=== PATIENT | male | born 1985 | race Caucasian/White ===

== ENCOUNTER 2018-08-01 20:37 | Observation (INO) | payer BC, SELFPAY ==
[2018-08-01 20:38] VITALS: BP 151/71; PULSE 96; RESP 15; TEMP 36.6; O2SAT 97; BMI 21.7
[2018-08-01] MEDS: Morphine 4 MG/ML Syringe IV (21:45)
[2018-08-01] MEDS: Ondansetron 4 MG/2 ML Vial IV (21:45)
[2018-08-01 21:49] LABS: Absolute Neutrophil Count 4.1 X10^3/uL (2.0-7.7); Basophil# 0.05 X10^3/uL; Basophil% 0.6 % (0-1); Eosinophil# 0.89 X10^3/uL; Eosinophils% 10.2 % (0-5); Hematocrit 45.9 % (40-54); Hemoglobin 15.1 g/dl (13.0-16.5); Lymphocyte % 32.1 % (19-41); Mean Corp Hgb Conc 32.9 g/gl (32-36); Mean Corpuscular Volume 91.1 fL (80-94); Mean Platelet Vol. 10.6 fl (6.2-12.0); Monocyte# 0.92 X10^3/uL; Monocyte% 10.5 % (0-10); Neutrophil # 4.06 X10^3/uL (2.7-7.7); Neutrophil % 46.5 % (47-70); Platelet Count 211 K/mm3 (150-450); RBC Distribution Width SD 42.6 fl (35.1-43.9); Red Blood Count 5.04 M/mm3 (4.6-6.2); White Blood Count 8.7 K/mm3 (4.4-11.0)
[2018-08-01 21:50] LABS: POSITIVE COUNT NO; POSITIVE DIFFERENTIAL NO; POSITIVE MORPHOLOGY NO
--- NOTE | 2018-08-01 21:58 | RAD_ITS ---
STUDY: X-RAY - LUMBAR SPINE REASON FOR EXAM: Male, 33 years old. Acute back pain. TECHNIQUE: 3 view(s) of the lumbar spine were obtained. COMPARISON: None FINDINGS: There is straightening of the normal lumbar lordosis. There is no substantial scoliosis. There is a normal alignment of the vertebrae. Normal vertebral bodies and endplates. Normal disc space heights. There is no demonstrated fracture. The soft tissue structures are unremarkable. RAD/Lumbar Spine 2 or 3 Views IMPRESSION: Normal x-ray examination of the lumbar spine. Electronically Signed: Filipe Mckeon MD at 22:32 EST , Service support ,
[2018-08-01 22:15] LABS: Anion Gap 6 (5-15); BUN 17 mg/dL (7-18); BUN/Creat Ratio 15.2 RATIO (10-20); Chloride 107 mmol/L (98-107); Creatinine, Serum 1.12 mg/dL (0.70-1.30); EST Glomerular Filtration Rate 80 mL/min (>60); Est Glom Filt Rate - Afr Amer 97 mL/min (>60); Estimated Creatinine Clearance 93.68 ml/min; Glucose 99 mg/dL (74-106); Sodium Level 141 mmol/L (136-145)
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
[2018-08-02] VITALS (14 sets, daily range): BP systolic 106–123; BP diastolic 52–72; PULSE 54–76; RESP 16–18; TEMP 36.6–36.8; O2SAT 97–98; BMI 22.3
--- NOTE | 2018-08-02 00:05 | HP.PCM_ITS ---
Problem List (1) Radiculopathy Status: Acute (2) Urinary incontinence Status: Acute Qualifiers: Urinary Incontinence type: unspecified incontinence Qualified Code(s): R32 - Unspecified urinary incontinence (3) Weakness Status: Acute (4) Chewing tobacco use Status: Chronic History of Present Illness Date of Admission: 08/02/18 Chief Complaint: L sided paresthesias, weakness, pain, recent urinary incontinence The patient is a 33 y/o M w/ PMHx: Chew Tobacco use who presents to the [facility] ED on 08/02/18 with history of onset approximately 6 weeks prior initially left toes and left fingertip paresthesias which over the last several weeks have progressively worsened now inclusive of the left hand in addition to the left anterior thigh as well as knee downward circumferentially describing is the sensation of having been in the cold all day and suddenly then jumping in a warm bath with pins and needles, pain, double sensation in addition to subjective weakness, muscle loss to the left side as well as now onset over the last 24 hours with initially 1 or 2 occasions of urinary incontinence and on day of ED presentation ongoing urinary incontinence. Patient denies any stool incontinence. Work-up in the ED included T 97.8, heart rate 67, BP 121/72, respiratory rate 16, 97% on room air, CBC with WBC 8.7, hemoglobin 15.1, platelet 211 without any market left shift, BMP unremarkable, plain film of the lumbar spine unremarkable. No post void residuals were obtained in the ED thus incontinent type is unclear, possibly overflow with retention. In the ED, the patient administered Zofran, morphine. Upon patient presentation with requested admission discussed case with neurology who recommended admission to obtain MRI with contrast of the brain and cervical spine for further evaluation. Past Medical History Past Medical History (Chronic Problems): Chronic Problems Chewing tobacco use (Chronic) Allergies No Known Allergies Allergy (Verified 08/01/18 20:43) Home Medications: Ambulatory Orders Medication Instructions Recorded Cyclobenzaprine [Flexeril] 10 mg PO TID 08/02/18 Naproxen 500 mg PO BID 08/02/18 Surgical History: no surgical history Psychiatric History: No pertinent psych hx Lives: Spouse/ Significant Other - Patient was with his and 13-year-old son. Smoking Status: Never smoker Tobacco Use: Chew - Patient notes 1 can of to last approximately 1 week. Alcohol: None Drugs: None - *Family History Maternal History Items: Diabetes, Heart Disease Paternal History Items: Diabetes, Heart Disease Review of Systems Constitutional: Reports: Malaise, Weakness, Fatigue. Denies: Chills, Fever, Weight Change HEENT: Denies: Head Aches, Sinus Congestion, Sinus Drainage Cardiovascular: Denies: Chest Pain, Palpitations Respiratory: Denies: Cough, Shortness of breath at rest, Sputum production Gastrointestinal: Denies: Abdominal Pain, Nausea, Vomiting Genitourinary: Reports: Incontinence. Denies: Dysuria Musculoskeletal: Reports: Hand Pain, Leg Pain. Denies: Joint Pain, Joint Tenderness Skin: Denies: Rash, Wounds Neurological: Reports: Numbness, Tingling. Denies: Focal weakness Psychiatric: Denies: Anxiety, Depression, Homicidal Ideations, Suicidal Ideations Hematologic/ Lymphatic: Denies: Easy Bruising, Easy Bleeding VTE Information - Inpt Only VTE Present on Admission: No VTE Mechan Device Prophylaxis: SCD's VTE Pharm Prophylaxis ordered?: Yes Patient Problems: Active and Suspected Problems Radiculopathy (Acute) Urinary incontinence (Acute) Weakness (Acute) Subjective: Seated upright in the ED bed, no acute distress. Objective: Physical Examination: General: awake, alert, oriented x 3 and cooperative, seated upright in bed in no apparent distress. Skin: normal color, turgor, no icterus, cyanosis. HEENT: AT/NC, EOMI, PERRLA, MMM, no facial paresthesias present, no carotid bruits or JVD noted. Lungs: CTA bilaterally, moderate effort, mild decrease BL bases, no rales, ronchi or wheezing. Heart: Regular rate and rhythm; no gallop, rub audible. Abdomen: soft, NTTP, ND, normal BS, no HSM, rectal tone normal. Extremities: no cyanosis, clubbing, subjective decreased sensation to the anterior left thigh in addition to knee circumferentially downward in addition to left hand dorsal and palmar regions with patient noted subjective weakness however examination 5 out of 5 bilaterally, reflexes intact, negative Babinski, normal rectal tone; cognitive function intact; pupils equally reactive to light and accomodation; cranial nerves II-XII grossly normal, moving all 4 extremities, strength currently appears preserved with no focal deficits. Psychiatric: affect appears normal, no acute evidence of depressive or anxiety feelings. - Physical Exam Vital Signs Temp Pulse Resp BP Pulse Ox 97.9 F 96 15 151/71 H 97 08/01/18 20:38 08/01/18 20:38 08/01/18 20:38 08/01/18 20:38 08/01/18 20:38 Oxygen Delivery Method Room Air Weight: 155 lb 10.342 oz Body Mass Index (BMI) 21.7 Laboratory Tests Past 24 Hrs 08/01/18 08/01/18 21:40 21:40 WBC 8.7 RBC 5.04 Hgb 15.1 Hct 45.9 MCV 91.1 MCH 30.0 MCHC 32.9 RDW 13.0 RDW Differential 42.6 Plt Count 211 MPV 10.6 Immature Gran % (Auto) 0.100 Neut % (Auto) 46.5 L Lymph % (Auto) 32.1 [place] % (Auto) 10.5 H Eos % (Auto) 10.2 H Baso % (Auto) 0.6 Absolute Neuts (auto) 4.1 Absolute Lymphs (auto) 2.80 Total Counted Not Reportable Sodium 141 Potassium 4.0 Chloride 107 Carbon Dioxide 28.0 Anion Gap 6 BUN 17 Creatinine 1.12 Estim Creat Clear Calc 93.68 Est GFR (MDRD) Af Amer 97 Est GFR (MDRD) Non-Af 80 BUN/Creatinine Ratio 15.2 Glucose 99 Calcium 9.0 Assessment/Plan All Active Problems Radiculopathy (Acute) Urinary incontinence (Acute) Weakness (Acute) The patient is a 33 y/o M w/ PMHx: Chew Tobacco use who presents to the [facility] ED on 08/02/18 with history of onset approximately 6 weeks prior initially left toes and left fingertip paresthesias which over the last several weeks have progressively worsened now inclusive of the left hand in addition to the left anterior thigh as well as knee downward circumferentially in addition to subjective weakness, muscle loss to the left side as well as now onset over the last 24 hours urinary incontinence. (1) Left-sided paresthesias, Radiculopathy w/ Urinary Incontinence, Unclear type : Will admit to PCU, maintain on telemetry, continue serial neurological assessments, fall precautions, PRN pain and antiemetic regimen, obtain MRI Brain and cervical spine with contrast per discussion with Neurology, pending Neurology consultation/assessment, PT, OT, CM consultation. Post void residuals to assess for possible overflow incontinence which with retention would be more worrisome for cord compression. Neurology advised hold on any steroid addition until MRI resulted. (2) Tobacco Abuse: Encouraged cessation, inpatient consultation per RT, NR if desired. (3) DVT prophylaxis: SCDs, Lovenox. Code Visit OBSV E&M: 67802 Initial observation care L3
--- NOTE | 2018-08-02 01:00 | MRI_ITS ---
STUDY: MRI CERVICAL SPINE WITH AND WITHOUT CONTRAST REASON FOR EXAM: Male, 33 years old. Numbness and tingling in left hand. Left leg pain. Paresthesias. Urinary incontinence. TECHNIQUE: Standardized fat and water weighted pulse sequences were obtained in the sagittal and axial following I.V. administration of 7 ml of Gadavist contrast material. COMPARISON: None FINDINGS: Normal foramen magnum and brainstem-cervical cord junction. Normal craniovertebral junction. Normal anterior atlantoaxial articulation. Normal odontoid process. Normal cervical lordosis. Normal vertebral bodies and posterior osseous elements. C2-3: Normal endplates. Normal disc height, signal and morphology. Normal central canal and intervertebral neural foramina. C3-4: Normal endplates. Normal disc height, signal and morphology. Normal central canal and intervertebral neural foramina. C4-5: Normal endplates. Minimal disc space height narrowing. Mild central canal stenosis. Moderate stenosis of the bilateral intervertebral neural foramina due to osteophytes arising from the uncovertebral joints. C5-6: Normal endplates. Mild disc space height narrowing. Posterior annular bulging disc. Moderately pronounced central canal stenosis. The AP canal diameter is 3.5 mm. Moderately pronounced stenosis of the bilateral intervertebral neural foramina due to osteophytes arising from the uncovertebral joints. C6-7: Normal endplates. Normal disc height, signal and morphology. Normal central canal and intervertebral neural foramina. C7-T1: Normal endplates. Normal disc height, signal and morphology. Normal central canal and intervertebral neural foramina. T1-T2, T2-T3 and T3-T4: (Sagittal only). Normal endplates. Normal disc height, hydration and morphology. Normal central canal and bilateral intervertebral neural foramina. Abnormal T2 hyperintensity of the cervical spinal cord with surrounding tapering edema at the C5-C6 disc level. This enhanced with intravenous contrast. Normal visualized soft tissue structures. MRI/Spine Cervical W/WO Contrast IMPRESSION: 1. Moderate pronounced central canal stenosis at C5-C6 disc level and moderately pronounced stenosis of the bilateral intervertebral neural foramina due to osteophytes arising from the uncovertebral joints and posterior annular bulging disc. 2. Abnormal intramedullary signal abnormality of the cervical spinal cord at the C5-C6 disc level enhancement with intravenous contrast and with surrounding edema. Etiology is unknown at this time. Electronically Signed: Juan Cooney MD at 10:46 EST , Service support ,
--- NOTE | 2018-08-02 01:00 | MRI_ITS ---
STUDY: MRI BRAIN WITH AND WITHOUT CONTRAST REASON FOR EXAM: Male, 33 years old. Numbness and tingling in left hand. Left leg pain. Paresthesia. Urinary incontinence. TECHNIQUE: Standardized multiplanar fat and water weighted pulse sequences were obtained. 7 ml of Gadavist contrast material was administered intravenously for the contrast portion of the examination. COMPARISON: None. FINDINGS: No restricted diffusion to suspect acute or subacute ischemic infarct. No focal signal abnormalities throughout the brain parenchyma. Normal size of the ventricles and extra-axial spaces for the patient's age. Normal white matter tracts of the supratentorial brain. Normal bilateral basal ganglia. Normal thalami. There is no extra-axial fluid accumulation. Normal flow voids within the major intracranial circulation suggesting patency by spin echo criteria. Normal venous enhancement. There is no enhancing intra-axial or extra-axial abnormality. Normal sella turcica, pituitary gland, infundibular stalk, optic chiasm and hypothalamus. Normal tectal plate and pineal gland. Normal midbrain, js and medulla. Normal cerebellum. Normal basal cisterns. Normal bilateral temporal bones. Normal bilateral internal auditory canals. No demonstrated orbital abnormality, within the constraints of a routine brain study. Pronounced mucosal thickening of the entire paranasal sinuses. Normal calvarium and skull base. Normal visualized soft tissue structures. Normal visualized upper cervical spine. MRI/Brain W/WO Contrast IMPRESSION: 1. Normal unenhanced and enhanced MRI of the brain. 2. Pronounced pansinusitis. Electronically Signed: Juan Cooney MD at 10:06 EST , Service support ,
[2018-08-02 01:30] LABS: Magnesium 2.3 mg/dL (1.6-2.6); Thyroid Stim Hormone (TSH) 2.75 uIU/mL (0.358-3.74)
[2018-08-02] MEDS: 0.9% Normal Saline 1,000 ML 125 ML IV ×2 (01:34→12:08)
[2018-08-02 05:15] LABS: Absolute Lymphocyte Count 2.49 X10^3/ul (0.83-4.51); Absolute Neutrophil Count 2.3 X10^3/uL (2.0-7.7); Basophil# 0.04 X10^3/uL; Basophil% 0.6 % (0-1); Eosinophil# 0.86 X10^3/uL; Eosinophils% 13.2 % (0-5); Hemoglobin 13.5 g/dl (13.0-16.5); Lymphocyte # 2.49 X10^3/ul (4.0); Lymphocyte % 38.2 % (19-41); Mean Corp Hgb Conc 32.9 g/gl (32-36); Mean Corpuscular Hgb 30.1 pg (27.0-32.0); Mean Corpuscular Volume 91.5 fL (80-94); Mean Platelet Vol. 10.5 fl (6.2-12.0); Monocyte% 12.3 % (0-10); Neutrophil # 2.31 X10^3/uL (2.7-7.7); Neutrophil % 35.5 % (47-70); Platelet Count 171 K/mm3 (150-450); RBC Distribution Width CV 12.8 % (11.6-14.6); RBC Distribution Width SD 42.2 fl (35.1-43.9); Red Blood Count 4.48 M/mm3 (4.6-6.2); White Blood Count 6.5 K/mm3 (4.4-11.0)
[2018-08-02 05:16] LABS: POSITIVE COUNT NO; POSITIVE DIFFERENTIAL NO; POSITIVE MORPHOLOGY NO
[2018-08-02 05:29] LABS: Anion Gap 6 (5-15); BUN 19 mg/dL (7-18); BUN/Creat Ratio 17.6 RATIO (10-20); Calcium,Total 8.6 mg/dL (8.5-10.1); Chloride 106 mmol/L (98-107); Creatinine, Serum 1.08 mg/dL (0.70-1.30); EST Glomerular Filtration Rate 83 mL/min (>60); Est Glom Filt Rate - Afr Amer 101 mL/min (>60); Estimated Creatinine Clearance 98.52 ml/min; Glucose 87 mg/dL (74-106); Sodium Level 143 mmol/L (136-145)
[2018-08-02] MEDS: 0.9% NaCl Peripheral Flush Adult/Peds IV ×2 (05:46→22:32)
[2018-08-02 10:25] LABS: Erythrocyte Sedimentation Rate < 1 mm/hr (0-15)
[2018-08-02 10:31] LABS: CRP < 2.90 mg/L (0.0-3.0); Rheumatoid Factor < 10.0 IU/mL (<15)
[2018-08-02 10:43] LABS: Vitamin B12 929 pg/mL (211-911)
[2018-08-02] MEDS: HYDROcodone Bitartrate/Apap 5/325 Tablet PO ×2 (12:08→18:14)
--- NOTE | 2018-08-02 14:19 | CON.PCM_ITS ---
Problem List (1) Transverse myelitis Status: Acute Reason for Consult Date of Consultation: 08/02/18 Reason for Consultation: Left leg/arm numbness History of Present Illness: The patient is a 33 year old M with PMH chronic low back pain admitted with left leg numbness and weakness along with urinary incontinence. Per patient he has been having left leg numbness and left finger/hand numbness for the past 6-8 weeks, started having urinary incontinence for the past 2 days, has some weakness in the left leg, denies any falls, but complaints that he needs to catch himself, has severe low back pain, had intermittent radicular symptoms where he would feel electrical shock like sensation in the lower back. Denies any bladder incontinence, or saddle anesthesia. Denies any right sided numbness or weakness, denies facial weakness or numbness. No speech disturbance, visual disturbances. Denies any sick contact, tick bite or recent travel history. MRI C spine reported to show T2 hyperintense enhancing lesion at C5-C6 level. MRI Brain reported nothing acute. [] Past Medical History Past Medical History (Chronic Problems): Chronic Problems Chewing tobacco use (Chronic) Allergies No Known Allergies Allergy (Verified 08/01/18 20:43) Home Medications: Ambulatory Orders Medication Instructions Recorded Cyclobenzaprine [Flexeril] 10 mg PO TID 08/02/18 Naproxen 500 mg PO BID 08/02/18 Surgical History: no surgical history Psychiatric History: No pertinent psych hx Lives: Spouse/ Significant Other - Patient was with his and 13-year-old son. Smoking Status: Never smoker Tobacco Use: Chew - Patient notes 1 can of to last approximately 1 week. Alcohol: None Drugs: None - *Family History Maternal History Items: Diabetes, Heart Disease Paternal History Items: Diabetes, Heart Disease Review of Systems Constitutional: Reports: - - complete ROS negative except as documented in HPI Patient Problems: Active and Suspected Problems Radiculopathy (Acute) Urinary incontinence (Acute) Weakness (Acute) Transverse myelitis (Acute) - Physical Exam General: Alert HEENT: Normocephalic Neck: Supple Lungs: Normal air movement Cardiovascular: Normal S1, Normal S2 Abdomen: Bowel Sounds Present Extremities: No cyanosis Neurological: - - consious, alert, CN 2-12 grossly intact, Power 5/5 both UE, 5/5 right LE, +4/5 Left LE, mild sensory loss to light touch/pin prick in the left UE/LE, patient unable to identify clear sensory level, Reflexes +++ B/L B/S/T/K/A, illsustained ankle clonus left LE, no cerebellar signs, gait deferred, no NR. Psych/Mental Status: Normal Affect Vital Signs Temp Pulse Resp BP Pulse Ox 98.2 F 63 16 119/67 98 08/02/18 10:25 08/02/18 11:22 08/02/18 10:25 08/02/18 10:25 08/02/18 10:25 Oxygen Delivery Method Room Air Weight: 71.6 kg Body Mass Index (BMI) 22.3 Intake and Output for Last 24 Hours 07/31/18 08/01/18 08/02/18 23:59 23:59 23:59 Intake Total 1410 / 1410 Balance 1410 / 1410 Laboratory Tests Past 24 Hrs 08/01/18 08/01/18 08/01/18 21:40 21:40 21:40 WBC 8.7 RBC 5.04 Hgb 15.1 Hct 45.9 MCV 91.1 MCH 30.0 MCHC 32.9 RDW 13.0 RDW Differential 42.6 Plt Count 211 MPV 10.6 Immature Gran % (Auto) 0.100 Neut % (Auto) 46.5 L Lymph % (Auto) 32.1 [place] % (Auto) 10.5 H Eos % (Auto) 10.2 H Baso % (Auto) 0.6 Absolute Neuts (auto) 4.1 Absolute Lymphs (auto) 2.80 Total Counted Not Reportable ESR Sodium 141 Potassium 4.0 Chloride 107 Carbon Dioxide 28.0 Anion Gap 6 BUN 17 Creatinine 1.12 Estim Creat Clear Calc 93.68 Est GFR (MDRD) Af Amer 97 Est GFR (MDRD) Non-Af 80 BUN/Creatinine Ratio 15.2 Glucose 99 Calcium 9.0 Magnesium 2.3 C-React Prot Ext Range Angiotensin Convert Enz Vitamin B12 TSH 2.75 Rheumatoid Factor GOMEZ Screen c-ANCA Antibody p-ANCA Antibody SHERRI-1 Antibody SS-A/Ro IgG Antibody SS-B/La IgG Antibody Sm (Finch) Antibody [employer] SAL[employer]ESSIONAL Antibody Scl-70 Scleroderma Ab Double Strand DNA Ab Anti-ss DNA IgG Ab Centromere B Antibody Lyme Total Antibody West Nile Virus IgG Ab West Nile Virus IgM Ab Miscellaneous Test 08/02/18 08/02/18 08/02/18 05:00 05:00 05:00 WBC 6.5 RBC 4.48 L Hgb 13.5 Hct 41.0 MCV 91.5 MCH 30.1 MCHC 32.9 RDW 12.8 RDW Differential 42.2 Plt Count 171 MPV 10.5 Immature Gran % (Auto) 0.200 Neut % (Auto) 35.5 L Lymph % (Auto) 38.2 [place] % (Auto) 12.3 H Eos % (Auto) 13.2 H Baso % (Auto) 0.6 Absolute Neuts (auto) 2.3 Absolute Lymphs (auto) 2.49 Total Counted Not Reportable ESR < 1 Sodium 143 Potassium 4.0 Chloride 106 Carbon Dioxide 31.0 Anion Gap 6 BUN 19 H Creatinine 1.08 Estim Creat Clear Calc 98.52 Est GFR (MDRD) Af Amer 101 Est GFR (MDRD) Non-Af 83 BUN/Creatinine Ratio 17.6 Glucose 87 Calcium 8.6 Magnesium C-React Prot Ext Range Angiotensin Convert Enz Vitamin B12 TSH Rheumatoid Factor GOMEZ Screen c-ANCA Antibody p-ANCA Antibody SHERRI-1 Antibody SS-A/Ro IgG Antibody SS-B/La IgG Antibody Sm (Finch) Antibody [employer] SAL[employer] PROFESSIONAL Antibody Scl-70 Scleroderma Ab Double Strand DNA Ab Anti-ss DNA IgG Ab Centromere B Antibody Lyme Total Antibody West Nile Virus IgG Ab West Nile Virus IgM Ab Miscellaneous Test 08/02/18 08/02/18 08/02/18 05:00 05:00 05:00 WBC RBC Hgb Hct MCV MCH MCHC RDW RDW Differential Plt Count MPV Immature Gran % (Auto) Neut % (Auto) Lymph % (Auto) [place] % (Auto) Eos % (Auto) Baso % (Auto) Absolute Neuts (auto) Absolute Lymphs (auto) Total Counted ESR Sodium Potassium Chloride Carbon Dioxide Anion Gap BUN Creatinine Estim Creat Clear Calc Est GFR (MDRD) Af Amer Est GFR (MDRD) Non-Af BUN/Creatinine Ratio Glucose Calcium Magnesium C-React Prot Ext Range < 2.90 Angiotensin Convert Enz Vitamin B12 929 H TSH Rheumatoid Factor < 10.0 GOMEZ Screen Pending c-ANCA Antibody p-ANCA Antibody SHERRI-1 Antibody Pending SS-A/Ro IgG Antibody Pending SS-B/La IgG Antibody Pending Sm (Finch) Antibody Pending [employer]ESSIONAL Antibody Pending Scl-70 Scleroderma Ab Pending Double Strand DNA Ab Pending Anti-ss DNA IgG Ab Centromere B Antibody Pending Lyme Total Antibody West Nile Virus IgG Ab West Nile Virus IgM Ab Miscellaneous Test 08/02/18 08/02/18 05:00 05:00 WBC RBC Hgb Hct MCV MCH MCHC RDW RDW Differential Plt Count MPV Immature Gran % (Auto) Neut % (Auto) Lymph % (Auto) [place] % (Auto) Eos % (Auto) Baso % (Auto) Absolute Neuts (auto) Absolute Lymphs (auto) Total Counted ESR Sodium Potassium Chloride Carbon Dioxide Anion Gap BUN Creatinine Estim Creat Clear Calc Est GFR (MDRD) Af Amer Est GFR (MDRD) Non-Af BUN/Creatinine Ratio Glucose Calcium Magnesium C-React Prot Ext Range Angiotensin Convert Enz Pending Vitamin B12 TSH Rheumatoid Factor GOMEZ Screen c-ANCA Antibody Pending p-ANCA Antibody Pending SHERRI-1 Antibody SS-A/Ro IgG Antibody SS-B/La IgG Antibody Sm (Finch) Antibody [employer]ESSIONAL Antibody Scl-70 Scleroderma Ab Double Strand DNA Ab Anti-ss DNA IgG Ab Pending Centromere B Antibody Lyme Total Antibody Pending West Nile Virus IgG Ab Pending West Nile Virus IgM Ab Pending Miscellaneous Test Pending Assessment/Plan All Active Problems Radiculopathy (Acute) Urinary incontinence (Acute) Weakness (Acute) Transverse myelitis (Acute) The patient is a 33 year old M with PMH chronic low back pain admitted with left leg numbness and weakness along with urinary incontinence. Per patient he has been having left leg numbness and left finger/hand numbness for the past 6-8 weeks, started having urinary incontinence for the past 2 days, has some weakness in the left leg, denies any falls, but complaints that he needs to catch himself, has severe low back pain, had intermittent radicular symptoms where he would feel electrical shock like sensation in the lower back. Denies any bladder incontinence, or saddle anesthesia. Denies any right sided numbness or weakness, denies facial weakness or numbness. No speech disturbance, visual disturbances. Denies any sick contact, tick bite or recent travel history. MRI C spine reported to show T2 hyperintense enhancing lesion at C5-C6 level. MRI Brain reported nothing acute. Impression Enhancing hyperintense intramedullary lesion at C5-C6, spinal stenosis R/O inflammation/infectious/demyelinating etiology vs malignancy Plan -MRI C spine reported to show T2 hyperintense enhancing lesion at C5-C6 level. MRI Brain reported nothing acute. -Check MRI T spine w/w/o contrast and MRI L spine w/w/o contrast -LP- check CSF cell count, protein, glucose, MBP, oligoclonal bands, EISHA level, IGG index, EBV/HSV/CMV PCR, fungal and gram stain, -Check Vitamin B12 level, TSH, GOMEZ/ANCA/RF/SSa/SSb AB, NMO IgG and MOG Ab testing. -Solumedrol 1 g IV once daily for 5 days, then will switch to prednisone 60 mg PO once daily based on test results -Protonix and Calcium carbonate -GI/DVT prophylaxis -PT/OT -Fall precautions -Further medical management per hospitalist team -Please call with questions if any -Thank you for allowing us to participate in patient's care and management Code Visit Inpatient E&M: 74306 Init Hosp L3
--- NOTE | 2018-08-02 17:57 | PN_ITS ---
Patient Problems: Active and Suspected Problems Radiculopathy (Acute) Urinary incontinence (Acute) Weakness (Acute) Transverse myelitis (Acute) Subjective: Patient has ongoing numbness of left fingers for 6-8 weeks which was a stable until it progressed in the last 2 days with urinary incontinence of 1-2 occasion in addition of subjective weakness on the left leg. Numbness progressed to anterior aspect of thigh. Patient also had back pain. Vitals/I&O's: Vital Signs Temp Pulse Resp BP Pulse Ox 98.2 F 72 16 106/66 98 08/02/18 16:25 08/02/18 16:25 08/02/18 16:25 08/02/18 16:25 08/02/18 16:25 Oxygen Delivery Method Room Air Weight: 157 lb 13.616 oz Body Mass Index (BMI) 22.3 Intake and Output for Last 24 Hours 07/31/18 08/01/18 08/02/18 23:59 23:59 23:59 Intake Total 2561 / 2561 Balance 2561 / 2561 General: Alert, Oriented x3, Cooperative HEENT: Atraumatic, PERRLA, EOMI, Normocephalic Oral: Moist Mucosa Neck: Supple, No JVD, Negative Carotid Bruits Lungs: Clear to auscultation, Normal air movement, No rhonchi, No wheeze, No rales Cardiovascular: Regular rate, Regular Rhythm, Normal S1, Normal S2, No murmurs Abdomen: Bowel Sounds Present, Soft, Non Tender, Non-Distended Extremities: No edema, Capillary Refill Less than 3 Seconds Skin: No rashes, No breakdown Musculoskeletal: No Tenderness to Palpation of Joints or Extremities Neurological: - - Mild weakness of left lower extremity. 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 Plantar reflex is negative Psych/Mental Status: Normal Affect, Appropriate Laboratory Results 08/01/18 21:40: WBC 8.7, RBC 5.04, Hgb 15.1, Hct 45.9, MCV 91.1, MCH 30.0, MCHC 32.9, RDW 13.0, RDW Differential 42.6, Plt Count 211, MPV 10.6, Immature Gran % (Auto) 0.100, Neut % (Auto) 46.5 L, Lymph % (Auto) 32.1, [place] % (Auto) 10.5 H, Eos % (Auto) 10.2 H, Baso % (Auto) 0.6, Absolute Neuts (auto) 4.1, Absolute Lymphs (auto) 2.80, Total Counted Not Reportable 08/01/18 21:40: Sodium 141, Potassium 4.0, Chloride 107, Carbon Dioxide 28.0, Anion Gap 6, BUN 17, Creatinine 1.12, Estim Creat Clear Calc 93.68, Est GFR (M DRD) Af Amer 97, Est GFR (MDRD) Non-Af 80, BUN/Creatinine Ratio 15.2, Glucose 99, Calcium 9.0 08/01/18 21:40: Magnesium 2.3, TSH 2.75 08/02/18 05:00: WBC 6.5, RBC 4.48 L, Hgb 13.5, Hct 41.0, MCV 91.5, MCH 30.1, MCHC 32.9, RDW 12.8, RDW Differential 42.2, Plt Count 171, MPV 10.5, Immature Gran % (Auto) 0.200, Neut % (Auto) 35.5 L, Lymph % (Auto) 38.2, [place] % (Auto) 12.3 H, Eos % (Auto) 13.2 H, Baso % (Auto) 0.6, Absolute Neuts (auto) 2.3, Absolute Lymphs (auto) 2.49, Total Counted Not Reportable 08/02/18 05:00: Sodium 143, Potassium 4.0, Chloride 106, Carbon Dioxide 31.0, Anion Gap 6, BUN 19 H, Creatinine 1.08, Estim Creat Clear Calc 98.52, Est GFR (MDRD) Af Amer 101, Est GFR (MDRD) Non-Af 83, BUN/Creatinine Ratio 17.6, Glucose 87, Calcium 8.6 08/02/18 05:00: ESR < 1 08/02/18 05:00: C-React Prot Ext Range < 2.90, Rheumatoid Factor < 10.0 08/02/18 05:00: Vitamin B12 929 H 08/02/18 05:00: GOMEZ Screen Pending, SHERRI-1 Antibody Pending, SS-A/Ro IgG Antibody Pending, SS-B/La IgG Antibody Pending, Sm (Finch) Antibody Pending, FUEL TECHNICIAN Antibody Pending, Scl-70 Scleroderma Ab Pending, Double Strand DNA Ab Pending, Centromere B Antibody Pending 08/02/18 05:00: Angiotensin Convert Enz Pending, c-ANCA Antibody Pending, p-ANCA Antibody Pending, Anti-ss DNA IgG Ab Pending, Lyme Total Antibody Pending, West Nile Virus IgG Ab Pending, West Nile Virus IgM Ab Pending 08/02/18 05:00: Miscellaneous Test Pending Current Medications Acetaminophen (Tylenol) 650 mg PO Q6H PRN PRN PRN Reason: Non-cardiac pain (mod-severe) Hydrocodone Bitart/Acetaminophen ([place] 5mg-325mg) 1 - 2 tablet PO Q6H PRN PRN PRN Reason: Moderate-severe pain Last Admin: 08/02/18 12:08 Dose: 1 tablet Al Hydroxide/Mg Hydroxide (Mylanta Ii) 30 ml PO Q6H PRN PRN PRN Reason: Gastric burning Hydralazine HCl (Apresoline Iv) 10 mg IV Q4H PRN PRN PRN Reason: SBP > 160 Sodium Chloride () 1,000 mls @ 125 mls/hr IV .Q8H NELLIE Last Admin: 08/02/18 12:08 Dose: 125 mls/hr Methylprednisolone 1,000 mg/ (Sodium Chloride) 116 mls @ 116 mls/hr IV DAILY NELLIE Stop: 08/06/18 10:59 Last Admin: 08/02/18 17:26 Dose: 116 mls/hr Magnesium Hydroxide (Milk Of Magnesia) 30 ml PO DAILY PRN PRN Reason: Constipation Morphine Sulfate () 1 - 2 mg IV Q4H PRN PRN PRN Reason: PAIN Nutritional Formula (Lactose Free) (Ensure Enlive) 120 ml PO 4X/DAY NELLIE Last Admin: 08/02/18 17:26 Dose: 120 ml Ondansetron HCl (Zofran) 4 mg IV Q8H PRN PRN PRN Reason: NAUSEA Sodium Chloride () 5 - 15 ml IV UD PRN PRN Reason: SALINE FLUSH Last Admin: 08/02/18 05:46 Dose: 10 ml Medical Necessity - Tobacco Use Smoking Status: Never smoker Tobacco Use: Chew - Patient notes 1 can of to last approximately 1 week. Assessment/Plan All Active Problems Radiculopathy (Acute) Urinary incontinence (Acute) Weakness (Acute) Transverse myelitis (Acute) The patient is a 33 y/o M with no prior history of neurological problem but habit of chew Tobacco use who presents to the [facility] ED on 08/02/18 with history of onset approximately 6 weeks prior initially left toes and left fingertip paresthesias which over the last several weeks have progressively worsened now inclusive of the left hand in addition to the left anterior thigh as well as knee downward circumferentially in addition to subjective weakness, muscle loss to the left side as well as now onset over the last 24 hours urinary incontinence. (1) Left-sided paresthesias, Radiculopathy w/ Urinary Incontinence, Unclear type: Admitted to PCU, maintain on telemetry, continue serial neurological assessments, fall precautions, PRN pain and antiemetic regimen. MRI C-spine was done and shows T2 hyperintense enhancing lesion at C5-C6. Discussed with neurologist Dr. Lainez and no acute cord compression but has mild to moderate central canal stenosis at C5-C6 level and impingement on intervertebral foramen. Advised LP as there is high suspicion of transverse myelitis, rule out vasculitis. MRI T-spine and LS-spine also ordered. Solu-Medrol 1 g IV once daily for 5 days. Rheumatological small vessel disease workup. Need outpatient spine surgeon. obtain MRI Brain and cervical spine with contrast per discussion with Neurology, pending Neurology consultation/assessment, PT, OT, CM consultation. Post void residuals to assess for possible overflow incontinence which with retention would be more worrisome for cord compression. Neurology advised hold on any steroid addition until MRI resulted. (2) Tobacco Abuse: Encouraged cessation, inpatient consultation per RT, NR if desired. (3) DVT prophylaxis: SCDs, Lovenox. Clinical Impression(s) from Imaging Studies Lumbar Spine X-Ray 08/01/18 21:58 IMPRESSION: Normal x-ray examination of the lumbar spine. Electronically Signed: Filipe Mckeon MD at 22:32 EST , Service support , Brain MRI 08/02/18 01:00 IMPRESSION: 1. Normal unenhanced and enhanced MRI of the brain. 2. Pronounced pansinusitis. Cervical Spine MRI 08/02/18 01:00 IMPRESSION: 1. Moderate pronounced central canal stenosis at C5-C6 disc level and moderately pronounced stenosis of the bilateral intervertebral neural foramina due to osteophytes arising from the uncovertebral joints and posterior annular bulging disc. 2. Abnormal intramedullary signal abnormality of the cervical spinal cord at the C5-C6 disc level enhancement with intravenous contrast and with surrounding edema. Etiology is unknown at this time. Code Visit Inpatient E&M: 94511 Subs Hosp L2
[2018-08-02] MEDS: 0.9% Normal Saline 1,000 ML 100 ML IV (21:36)
[2018-08-02] MEDS: Morphine 2 MG/ML Syringe IV (22:32)
[2018-08-02] MEDS: Temazepam 15 MG Capsule PO (22:32)
[2018-08-03] VITALS (7 sets, daily range): BP systolic 94–135; BP diastolic 56–71; PULSE 69–93; RESP 16; TEMP 36.6–36.8; O2SAT 96–98
[2018-08-03 05:36] LABS: Oligoclonal Banding REF LAB
--- NOTE | 2018-08-03 06:00 | MRI_ITS ---
STUDY: MRI THORACIC SPINE WITH AND WITHOUT CONTRAST REASON FOR EXAM: Male, 33 years old. Transverse myelitis. Paresthesias. Numbness/tingling in left leg/hand. Urinary incontinence. Back pain. TECHNIQUE: 7 ml of Gadavist was administered intravenously for the contrast portion of the examination. COMPARISON: None. FINDINGS: Normal kyphosis of the thoracic spine. There is no substantial scoliosis. T1-2, T2-3, T3-4, T4-5, T5-6, T6-7, T7-8, T8-9, T9-10, T10-11, T11-12: Small posterior midline disc protrusion at T7-T8 disc level with mild disc space height narrowing. No recent or remote fractures of the thoracic spine. Minimal disc space height narrowing at T5-6 disc level. The remaining thoracic discs are normal. Small T5 benign vertebral body hemangioma. Normal central canal. Normal bilateral intervertebral neural foramina. Normal visualized thoracic cord. Normal conus medullaris that terminates at the upper T12 vertebral body level. The soft tissue structures are unremarkable. There is no enhancing abnormality. MRI/Spine Thoracic W/WO Contrast IMPRESSION: 1. Small T7-T8 posterior midline disc protrusion causing minimal indentation of the ventral cord surface but no spinal cord compression. 2. Minimal T5-T6 disc space height narrowing. 3. Small enhancing T5 benign vertebral body hemangioma. 4. Normal MRI of the thoracic spinal cord. Electronically Signed: Juan Cooney MD at 11:29 EST , Service support ,
--- NOTE | 2018-08-03 06:00 | MRI_ITS ---
STUDY: MRI LUMBAR SPINE WITH AND WITHOUT CONTRAST REASON FOR EXAM: Male, 33 years old. Back pain. Transverse myelitis. Paresthesias. Numbness/tingling of left leg/hand. Urinary incontinence. TECHNIQUE: Standardized fat and water weighted pulse sequences were obtained in the sagittal and axial planes. 7 ml of Gadavist contrast material was administered for the contrast portion of the examination. COMPARISON: None FINDINGS: T11-T12: (Sagittal only). Normal endplates. Normal disc height, hydration and morphology. No ventral extradural defect. Normal central canal and bilateral intervertebral neural foramina. T12-L1: (Sagittal only). Normal endplates with Schmorl's nodes. Normal disc height, hydration and morphology. No ventral extradural defect. Normal central canal and bilateral intervertebral neural foramina. Normal lumbar lordosis. There is no substantial scoliosis. Normal conus medullaris that terminates at the upper T12 vertebral body level. L1-2: Normal endplates. Normal disc height, hydration and morphology. Mild central canal stenosis with an AP canal diameter of 9 mm. This is secondary to developmentally short pedicles. Normal bilateral lateral recesses. Normal facet joints. Normal bilateral intervertebral neural foramina. L2-3: Normal endplates. Normal disc height, hydration and morphology. No ventral extradural defect. Mild central canal stenosis with an AP canal diameter of 8 mm. This is secondary to developmentally short pedicles. Normal bilateral lateral recesses. Normal facet joints. Normal bilateral intervertebral neural foramina. L3-4: Normal endplates. Normal disc height, hydration and morphology. Moderate central canal stenosis with an AP canal diameter of 7.5 mm. This is secondary to developmentally short pedicles. Normal bilateral lateral recesses. Normal facet joints. Normal bilateral intervertebral neural foramina. L4-5: Normal endplates. Mild disc space height narrowing. Small posterior midline disc protrusion. Moderately pronounced central canal stenosis. The AP canal diameter is 5 mm. Normal bilateral lateral recesses. Normal facet joints. Normal bilateral intervertebral neural foramina. L5-S1: Normal endplates. Mild disc space height narrowing. Small left posterior paramedian disc protrusion with suspicious minimal posterior displacement of the left S1 nerve root sleeve. Moderate central canal stenosis. The AP canal diameter is 6 mm. Normal facet joints. Normal bilateral intervertebral neural foramina. Normal visualized sacral ala. Normal visualized paraspinous soft tissue structures. No abnormally enhancing lesions intradurally and extradurally. MRI/Spine Lumbar W/WO Contrast IMPRESSION: 1. Moderately pronounced central canal stenosis at L4-L5 disc level secondary to developmental short pedicles and small posterior midline disc protrusion. 2. Small left L5-S1 posterior paramedian disc protrusion with suspicious minimal posterior displacement of the left S1 nerve root sleeve and moderate central canal stenosis. 3. Moderate central canal stenosis at L3-L4 disc level. 4. Mild central canal stenosis at L1-L2 and L2-L3 disc space levels. 5. No MRI evidence of lumbar extruded disc fragment. Electronically Signed: Juan Cooney MD at 11:24 EST , Service support ,
[2018-08-03 06:03] LABS: Anion Gap 8 (5-15); BUN 17 mg/dL (7-18); Calcium,Total 8.6 mg/dL (8.5-10.1); Chloride 108 mmol/L (98-107); EST Glomerular Filtration Rate 91 mL/min (>60); Est Glom Filt Rate - Afr Amer 110 mL/min (>60); Estimated Creatinine Clearance 106.41 ml/min; Glucose 176 mg/dL (74-106); Potassium 4.4 mmol/L (3.5-5.1); Sodium Level 142 mmol/L (136-145)
[2018-08-03] MEDS: 0.9% Normal Saline 1,000 ML 100 ML IV (06:12)
[2018-08-03 06:16] LABS: Absolute Lymphocyte Count 0.56 X10^3/ul (0.83-4.51); Absolute Neutrophil Count 5.6 X10^3/uL (2.0-7.7); Hematocrit 43.3 % (40-54); Lymphocyte # 0.56 X10^3/ul (4.0); Mean Corp Hgb Conc 32.3 g/gl (32-36); Mean Corpuscular Hgb 29.5 pg (27.0-32.0); Mean Corpuscular Volume 91.4 fL (80-94); Mean Platelet Vol. 10.9 fl (6.2-12.0); Monocyte# 0.03 X10^3/uL; Monocyte% 0.5 % (0-10); Neutrophil # 5.59 X10^3/uL (2.7-7.7); Neutrophil % 90.3 % (47-70); Platelet Count 180 K/mm3 (150-450); RBC Distribution Width CV 12.6 % (11.6-14.6); RBC Distribution Width SD 41.5 fl (35.1-43.9); Red Blood Count 4.74 M/mm3 (4.6-6.2); White Blood Count 6.2 K/mm3 (4.4-11.0)
[2018-08-03 06:19] LABS: Differential Indicated SCAN CRITERIA MET; POSITIVE COUNT NO; POSITIVE DIFFERENTIAL YES; POSITIVE MORPHOLOGY NO
--- NOTE | 2018-08-03 10:05 | RAD_ITS ---
PROCEDURE: Fluoroscopic guided Lumbar Puncture. DATE: August 04, 2018. CLINICAL INDICATION: Transverse myelitis. PHYSICIAN: Higinio Morgan M.D. MEDICATIONS: 1% lidocaine administered subcutaneously for local anesthesia. ACCESS SITE: Lower posterior back. NEEDLE: 22-gauge spinal needle. SPECIMEN: Approximately 12 mL clear]CSF fluid. FLUOROSCOPY TIME (if supplied): (0:23) minutes/seconds COMPLICATIONS: None immediate. The risks, benefits, and alternatives to the procedure were explained to the patient. The specific risks of bleeding, infection, and neurovascular injury were detailed and accepted. Witnessed informed consent was obtained. The patient was placed on the fluoroscopic table in the prone position. The level for needle entry was determined and marked. The overlying skin was cleaned and prepped in the usual sterile fashion. 2% lidocaine was administered subcutaneously for local anesthesia. Under fluoroscopic guidance a 22-gauge spinal needle was advanced. The thecal sac was entered at the L3- L4 vertebral level. The inner stylet was removed. There was spontaneous flow of clear CSF fluid. The patient was placed in a reversed Trendelenburg position. Approximately 12 mL of cerebrospinal fluid was collected using gravity. The specimen was collected and submitted to the laboratory for further evaluation. The needle was withdrawn,. Hemostasis was achieved and a sterile dressing placed. The patient tolerated the procedure well without any immediate complications. The patient was placed supine with head elevated and returned to the floor in stable condition. RAD/Fluoro Guided Lumbar Puncture IMPRESSION: Successful fluoroscopic-guided lumbar puncture. Electronically Signed: Higinio Morgan MD at 11:18 EST Tel [phone], Service support ,
--- NOTE | 2018-08-03 10:36 | CYSPIN_PTH ---
PATIENT: ALVARO HELM Jr. LOC: [facility] U#:[id number] AGE/SX: 33/M ROOM: [facility] RE08/02/[address]: Dr. Horacio Baeza MD : 1985 BED: 1 DIS: 08/03/2018 SPEC #: [id number] RECD: 08/03/18 12:02 STATUS: FEMI REQ #: [id number] JONATAN: 08/03/18 10:[address]: Horacio Baeza DEPT: CYTOLOGY RECD BY: Lon Harris ENTERED: 08/03/18 12:02 SP TYPE: CYSPIN FL OTHR DR: MD Dr. Amber Pérez MD No Primary Care Phys Tissues: Cerebrospinal Fluid Procedures: Pap Stain (control) Special Stain Group II Cytospin Fluid HEADER OPERATION: Lumbar puncture PRE-OP DIAGNOSIS: Transverse myelitis TISSUE SUBMITTED: Cerebrospinal fluid for cytology DIAGNOSIS CYTOLOGY Cerebrospinal fluid for cytology (cytospin): Negative for malignant cells. AM:bridgett 08/04/18 CYTOLOGY STUDY Slides are reviewed. CYTOLOGY GROSS Received is 3 ml of clear colorless fluid labeled with the patient's name and and designated per the requisition as CSF. Submitted for cytology preparation. / 08/03/18 TC:5 CPT: 86007
[2018-08-03 10:48] LABS: Cytology, Body Fluid / CSF SEE PATHOLOGY REPORT
--- NOTE | 2018-08-03 10:58 | NURSING ---
Vital signs obtained at this time, late per VSA due to patient being off floor at procedure
[2018-08-03] MEDS: HYDROcodone Bitartrate/Apap 5/325 Tablet PO ×2 (10:59→17:02)
[2018-08-03 11:13] LABS: Body Fluid Mononuclear WBC # 0.004 10^3/uL; Body Fluid Mononuclear WBC % 57.1 %; Body Fluid Polynuclear WBC # 0.003 10^3/uL; Body Fluid Polynuclear WBC % 42.9 %; Total Cell Count CSF 0.007 10^3/uL (0.000-0.000); White Count, CSF 0.007 10^3/uL (0.000-0.000)
[2018-08-03 11:14] LABS: Auto B Fluid Analyzer BKGD Ct COUNTS W/IN LIMITS (W/IN LIMITS); CSF Color COLORLESS (Colorless); Tested Tube # 4
[2018-08-03 11:15] LABS: Appearance CSF (character) CLEAR (Clear)
--- NOTE | 2018-08-03 11:35 | CASEMGMT ---
According to [place] website, the following are in-network tertiary facilities: [facility], [facility], [facility], [facility], [facility], [facility], [place], [facility], and . Willy PURVIS CM
[2018-08-03 11:41] LABS: Glucose Spinal Fluid 86 mg/dL (40-75)
[2018-08-03 12:06] LABS: Body Fluid QC Type(s) BF1Q; RBC Count, Spinal Fluid 0 /mm-3 (None seen)
--- NOTE | 2018-08-03 13:15 | PN.NEURO_ITS ---
Patient Problems: Active and Suspected Problems Radiculopathy (Acute) Urinary incontinence (Acute) Weakness (Acute) Transverse myelitis (Acute) Subjective: No Issues overnight. LP done- results pending. - Physical Exam General: Alert HEENT: Normocephalic Neck: Supple Lungs: Normal air movement Cardiovascular: Normal S1, Normal S2 Abdomen: Bowel Sounds Present Extremities: No cyanosis Neurological: - - consious, alert, CN 2-12 grossly intact, Power 5/5 both UE, 5/5 right LE, +4/5 Left LE, mild sensory loss to light touch/pin prick in the left UE/LE, patient unable to identify clear sensory level, Reflexes +++ B/L B/S/T/K/A, illsustained ankle clonus left LE, no cerebellar signs, gait deferred, no NR. Psych/Mental Status: Normal Affect Vital Signs Temp Pulse Resp BP Pulse Ox 98.2 F 80 16 116/65 98 08/03/18 10:51 08/03/18 11:02 08/03/18 10:51 08/03/18 10:51 08/03/18 10:51 Oxygen Delivery Method Room Air Weight: 71.6 kg Body Mass Index (BMI) 22.3 Intake and Output for Last 24 Hours 08/01/18 08/02/18 08/03/18 23:59 23:59 23:59 Intake Total 2561 / 2561 2345 / 2345 Balance 2561 / 2561 2345 / 2345 Microbiology Past 72 Hours 08/03/18 10:34 Gram Stain - Final Csf, Spinal Fluid Laboratory Tests Past 24 Hrs 08/02/18 08/03/18 08/03/18 10:34 05:00 05:00 WBC 6.2 RBC 4.74 Hgb 14.0 Hct 43.3 MCV 91.4 MCH 29.5 MCHC 32.3 RDW 12.6 RDW Differential 41.5 Plt Count 180 MPV 10.9 Immature Gran % (Auto) 0.200 Neut % (Auto) 90.3 H Lymph % (Auto) 9.0 L [place] % (Auto) 0.5 Eos % (Auto) 0.0 Baso % (Auto) 0.0 Absolute Neuts (auto) 5.6 Absolute Lymphs (auto) 0.56 L Total Counted Not Reportable Sodium Potassium Chloride Carbon Dioxide Anion Gap BUN Creatinine Estim Creat Clear Calc Est GFR (MDRD) Af Amer Est GFR (MDRD) Non-Af BUN/Creatinine Ratio Glucose Calcium Albumin Pending Fld Polynuclear WBCs # Fld Polynuclear WBCs % Fluid Mononuclear WBCs Fld Mononuclear WBCs % CSF Appearance CSF Color CSF WBC CSF RBC CSF Cell Count Tube # CSF Total Cell Counted CSF Comment CSF Glucose CSF Total Protein CSF Albumin Pending Serum IgG Pending CSF IgG/Albumin Pending CSF Albumin Index Pending CSF IgG Index Pending CSF IgG Local Synthesis Pending CSF Myelin Basic Protein Pending CSF/Ser Oligoclon Bands Pending CSF Cryptococcus Ag CMV DNA Qual PCR HSV I DNA PCR HSV II DNA PCR Culture Method Pending Miscellaneous Cytology Miscellaneous Test Pending 08/03/18 08/03/18 08/03/18 05:00 10:34 10:34 WBC RBC Hgb Hct MCV MCH MCHC RDW RDW Differential Plt Count MPV Immature Gran % (Auto) Neut % (Auto) Lymph % (Auto) [place] % (Auto) Eos % (Auto) Baso % (Auto) Absolute Neuts (auto) Absolute Lymphs (auto) Total Counted Sodium 142 Potassium 4.4 Chloride 108 H Carbon Dioxide 26.0 Anion Gap 8 BUN 17 Creatinine 1.00 Estim Creat Clear Calc 106.41 Est GFR (MDRD) Af Amer 110 Est GFR (MDRD) Non-Af 91 BUN/Creatinine Ratio 17.0 Glucose 176 H Calcium 8.6 Albumin Fld Polynuclear WBCs # Fld Polynuclear WBCs % Fluid Mononuclear WBCs Fld Mononuclear WBCs % CSF Appearance CSF Color CSF WBC CSF RBC CSF Cell Count Tube # CSF Total Cell Counted CSF Comment CSF Glucose 86 H CSF Total Protein 45.0 CSF Albumin Serum IgG CSF IgG/Albumin CSF Albumin Index CSF IgG Index CSF IgG Local Synthesis CSF Myelin Basic Protein Pending CSF/Ser Oligoclon Bands CSF Cryptococcus Ag Pending CMV DNA Qual PCR HSV I DNA PCR HSV II DNA PCR Culture Method Miscellaneous Cytology Miscellaneous Test 08/03/18 08/03/18 08/03/18 10:34 10:34 10:34 WBC RBC Hgb Hct MCV MCH MCHC RDW RDW Differential Plt Count MPV Immature Gran % (Auto) Neut % (Auto) Lymph % (Auto) [place] % (Auto) Eos % (Auto) Baso % (Auto) Absolute Neuts (auto) Absolute Lymphs (auto) Total Counted Sodium Potassium Chloride Carbon Dioxide Anion Gap BUN Creatinine Estim Creat Clear Calc Est GFR (MDRD) Af Amer Est GFR (MDRD) Non-Af BUN/Creatinine Ratio Glucose Calcium Albumin Fld Polynuclear WBCs # 0.003 Fld Polynuclear WBCs % 42.9 Fluid Mononuclear WBCs 0.004 Fld Mononuclear WBCs % 57.1 CSF Appearance CLEAR CSF Color COLORLESS CSF WBC 0.007 H CSF RBC 0 CSF Cell Count Tube # 4 CSF Total Cell Counted 0.007 H CSF Comment May follow CSF Glucose CSF Total Protein CSF Albumin Serum IgG CSF IgG/Albumin CSF Albumin Index CSF IgG Index CSF IgG Local Synthesis CSF Myelin Basic Protein CSF/Ser Oligoclon Bands CSF Cryptococcus Ag CMV DNA Qual PCR Pending HSV I DNA PCR Pending HSV II DNA PCR Pending Culture Method Miscellaneous Cytology Pending Miscellaneous Test Medical Necessity - Tobacco Use Smoking Status: Never smoker Tobacco Use: Chew - Patient notes 1 can of to last approximately 1 week. Assessment/Plan All Active Problems Radiculopathy (Acute) Urinary incontinence (Acute) Weakness (Acute) Transverse myelitis (Acute) The patient is a 33 year old M with H chronic low back pain admitted with left leg numbness and weakness along with urinary incontinence. Per patient he has been having left leg numbness and left finger/hand numbness for the past 6-8 weeks, started having urinary incontinence for the past 2 days, has some weakness in the left leg, denies any falls, but complaints that he needs to catch himself, has severe low back pain, had intermittent radicular symptoms where he would feel electrical shock like sensation in the lower back. Denies any bladder incontinence, or saddle anesthesia. Denies any right sided numbness or weakness, denies facial weakness or numbness. No speech disturbance, visual disturbances. Denies any sick contact, tick bite or recent travel history. MRI C spine reported to show T2 hyperintense enhancing lesion at C5-C6 level. MRI Brain reported nothing acute. Impression Enhancing hyperintense intramedullary lesion at C5-C6, spinal stenosis R/O inflammation/infectious/demyelinating etiology vs malignancy Plan -MRI C spine reported to show T2 hyperintense enhancing lesion at C5-C6 level. MRI Brain reported nothing acute. -MRI T spine w/w/o contrast- nothing acute and MRI L spine w/w/o contrast- reviewed -LP- CSF cell count-7, protein-45, glucose-86, rest CSF results pending-MBP, oligoclonal bands, IESHA level, IGG index, EBV/HSV/CMV PCR, fungal and gram stain, -ESR <1, CRP <2.9, Vitamin B12 level-929, TSH-2.75, RF <10. Await- GOMEZ/ANCA/SSa/SSb AB, NMO IgG and MOG Ab testing. -Solumedrol 1 g IV once daily for 5 days -Given above LP results with normal ESR/CRP- may need transfer to tertiary care for further evaluation to r/o malignant etiology. -Spine surgery/neurosurgery consult -May need to check follow up MRI C spine w/w/o contrast in 4 weeks -Protonix and Calcium carbonate -GI/DVT prophylaxis -PT/OT -Fall precautions -Further medical management per hospitalist team -Please call with questions if any -Thank you for allowing us to participate in patient's care and management
--- NOTE | 2018-08-03 17:00 | NURSING ---
Called report to Rahel PURVIS at [facility]
--- NOTE | 2018-08-03 17:30 | PCM.DC.SUM ---
Discharge Date and Diagnosis - Problem List Patient Problems: Active and Suspected Problems Radiculopathy (Acute) Urinary incontinence (Acute) Weakness (Acute) Transverse myelitis (Acute) Date of Admission: 08/02/18 Date of Discharge: 08/03/18 - Primary Discharge Diagnosis Active and Suspected Problems Radiculopathy (Acute) Urinary incontinence (Acute) Weakness (Acute) Transverse myelitis (Acute) - Secondary Discharge Diagnosis Chronic Problems Chewing tobacco use (Chronic) Hospital Course and Treatment Imaging Results: 08/03/18 10:05 Fluoro Guided Lumbar Puncture [RAD] Urgent Summary of Care Provided: [] The patient is a 33 y/o M with no prior history of neurological problem but habit of chew Tobacco use who presents to the [facility] ED on 08/02/18 with history of onset approximately 6 weeks prior initially left toes and left fingertip paresthesias which over the last several weeks have progressively worsened now inclusive of the left hand in addition to the left anterior thigh as well as knee downward circumferentially in addition to subjective weakness, muscle loss to the left side as well as now onset over the last 24 hours urinary incontinence. (1) Left-sided paresthesias, Radiculopathy w/ Urinary Incontinence, Unclear type: Admitted to PCU, maintain on telemetry, continue serial neurological assessments, fall precautions, PRN pain and antiemetic regimen. MRI C-spine was done and shows coin shaped T2 hyperintense enhancing lesion at C5-C6. Discussed with neurologist Dr. Lainez and no acute cord compression but has mild to moderate central canal stenosis at C5-C6 level and impingement on intervertebral foramen . MRI T-spine and LS-spine was done and reported as mentioned below. Solu-Medrol 1 g IV once daily for 5 days. Rheumatological small vessel disease workup and spinal fluid viral titers are pending. Cell count of his spinal fluid shows 7 cells, 3 polynuclear, 4 mononuclear cells. Glucose and protein within normal limit. Neurologist Dr. Lainez wanted neurosurgical evaluation for cord edema at C5-C6 level along with T2 hyperintense enhancing lesion to rule out neoplastic etiology. [place] [facility] transfer line was called and discussed the clinical findings with Dr. Jean. He accepted the patient and neurosurgeon will be consulted. obtain MRI Brain and cervical spine with contrast per discussion with Neurology, pending Neurology consultation/assessment, PT, OT, CM consultation. Post void residuals to assess for possible overflow incontinence which with retention would be more worrisome for cord compression. Neurology advised hold on any steroid addition until MRI resulted. (2) Tobacco Abuse: Encouraged cessation. (3) DVT prophylaxis: SCDs, Lovenox. Patient is in the process of being transferred to [facility]. Patient is hemodynamically stable for transfer. Clinical Impression(s) from Imaging Studies Lumbar Spine X-Ray 08/01/18 21:58 IMPRESSION: Normal x-ray examination of the lumbar spine. Brain MRI 08/02/18 01:00 IMPRESSION: 1. Normal unenhanced and enhanced MRI of the brain. 2. Pronounced pansinusitis. Cervical Spine MRI 08/02/18 01:00 IMPRESSION: 1. Moderate pronounced central canal stenosis at C5-C6 disc level and moderately pronounced stenosis of the bilateral intervertebral neural foramina due to osteophytes arising from the uncovertebral joints and posterior annular bulging disc. 2. Abnormal intramedullary signal abnormality of the cervical spinal cord at the C5-C6 disc level enhancement with intravenous contrast and with surrounding edema. Etiology is unknown at this time. Lumbar Spine MRI 08/03/18 06:00 IMPRESSION: 1. Moderately pronounced central canal stenosis at L4-L5 disc level secondary to developmental short pedicles and small posterior midline disc protrusion. 2. Small left L5-S1 posterior paramedian disc protrusion with suspicious minimal posterior displacement of the left S1 nerve root sleeve and moderate central canal stenosis. 3. Moderate central canal stenosis at L3-L4 disc level. 4. Mild central canal stenosis at L1-L2 and L2-L3 disc space levels. 5. No MRI evidence of lumbar extruded disc fragment. Thoracic Spine MRI 08/03/18 06:00 IMPRESSION: 1. Small T7-T8 posterior midline disc protrusion causing minimal indentation of the ventral cord surface but no spinal cord compression. 2. Minimal T5-T6 disc space height narrowing. 3. Small enhancing T5 benign vertebral body hemangioma. 4. Normal MRI of the thoracic spinal cord. Lumbar Puncture Fluoroscopy 08/03/18 10:05 IMPRESSION: Successful fluoroscopic-guided lumbar puncture. Patient Problems: Active and Suspected Problems Radiculopathy (Acute) Urinary incontinence (Acute) Weakness (Acute) Transverse myelitis (Acute) Subjective: Patient still has paresthesia left hand. 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 No change. Patient had LP yesterday. Patient autoimmune workup and viral titers of lumbar punctures are pending. Imaging test reviewed with the patient. Discussed with the neurologist and wanted neurosurgical evaluation for cervical cord edema. Objective: General: Alert, Oriented x3, Cooperative HEENT: Atraumatic, PERRLA, EOMI, Normocephalic Oral: Moist Mucosa Neck: Supple, No JVD, Negative Carotid Bruits Lungs: Clear to auscultation, Normal air movement, No rhonchi, No wheeze, No rales Cardiovascular: Regular rate, Regular Rhythm, Normal S1, Normal S2, No murmurs Abdomen: Bowel Sounds Present, Soft, Non Tender, Non-Distended Extremities: No edema, Capillary Refill Less than 3 Seconds Skin: No rashes, No breakdown Musculoskeletal: No Tenderness to Palpation of Joints or Extremities Neurological: - - Mild weakness of left lower extremity. 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 Plantar reflex is negative Psych/Mental Status: Normal Affect, Appropriate - Physical Exam Vital Signs Temp Pulse Resp BP Pulse Ox 98.3 F 88 16 135/71 H 96 08/03/18 16:50 08/03/18 16:50 08/03/18 16:50 08/03/18 16:50 08/03/18 16:50 Oxygen Delivery Method Room Air Weight: 157 lb 13.616 oz Body Mass Index (BMI) 22.3 Intake and Output for Last 24 Hours 08/01/18 08/02/18 08/03/18 23:59 23:59 23:59 Intake Total 2561 / 2561 3042 / 3042 Balance 2561 / 2561 3042 / 3042 Microbiology Past 72 Hours 08/03/18 10:34 Gram Stain - Final Csf, Spinal Fluid Laboratory Tests Past 24 Hrs 08/02/18 08/03/18 08/03/18 10:34 05:00 05:00 WBC 6.2 RBC 4.74 Hgb 14.0 Hct 43.3 MCV 91.4 MCH 29.5 MCHC 32.3 RDW 12.6 RDW Differential 41.5 Plt Count 180 MPV 10.9 Immature Gran % (Auto) 0.200 Neut % (Auto) 90.3 H Lymph % (Auto) 9.0 L [place] % (Auto) 0.5 Eos % (Auto) 0.0 Baso % (Auto) 0.0 Absolute Neuts (auto) 5.6 Absolute Lymphs (auto) 0.56 L Total Counted Not Reportable Sodium Potassium Chloride Carbon Dioxide Anion Gap BUN Creatinine Estim Creat Clear Calc Est GFR (MDRD) Af Amer Est GFR (MDRD) Non-Af BUN/Creatinine Ratio Glucose Calcium Albumin Pending Fld Polynuclear WBCs # Fld Polynuclear WBCs % Fluid Mononuclear WBCs Fld Mononuclear WBCs % CSF Appearance CSF Color CSF WBC CSF RBC CSF Cell Count Tube # CSF Total Cell Counted CSF Comment CSF Glucose CSF Total Protein CSF Albumin Pending Serum IgG Pending CSF IgG/Albumin Pending CSF Albumin Index Pending CSF IgG Index Pending CSF IgG Local Synthesis Pending CSF Myelin Basic Protein Pending CSF/Ser Oligoclon Bands Pending CSF Cryptococcus Ag CMV DNA Qual PCR HSV I DNA PCR HSV II DNA PCR Culture Method Pending Miscellaneous Cytology Miscellaneous Test Pending 08/03/18 08/03/18 08/03/18 05:00 10:34 10:34 WBC RBC Hgb Hct MCV MCH MCHC RDW RDW Differential Plt Count MPV Immature Gran % (Auto) Neut % (Auto) Lymph % (Auto) [place] % (Auto) Eos % (Auto) Baso % (Auto) Absolute Neuts (auto) Absolute Lymphs (auto) Total Counted Sodium 142 Potassium 4.4 Chloride 108 H Carbon Dioxide 26.0 Anion Gap 8 BUN 17 Creatinine 1.00 Estim Creat Clear Calc 106.41 Est GFR (MDRD) Af Amer 110 Est GFR (MDRD) Non-Af 91 BUN/Creatinine Ratio 17.0 Glucose 176 H Calcium 8.6 Albumin Fld Polynuclear WBCs # Fld Polynuclear WBCs % Fluid Mononuclear WBCs Fld Mononuclear WBCs % CSF Appearance CSF Color CSF WBC CSF RBC CSF Cell Count Tube # CSF Total Cell Counted CSF Comment CSF Glucose 86 H CSF Total Protein 45.0 CSF Albumin Serum IgG CSF IgG/Albumin CSF Albumin Index CSF IgG Index CSF IgG Local Synthesis CSF Myelin Basic Protein Pending CSF/Ser Oligoclon Bands CSF Cryptococcus Ag Pending CMV DNA Qual PCR HSV I DNA PCR HSV II DNA PCR Culture Method Miscellaneous Cytology Miscellaneous Test 08/03/18 08/03/18 08/03/18 10:34 10:34 10:34 WBC RBC Hgb Hct MCV MCH MCHC RDW RDW Differential Plt Count MPV Immature Gran % (Auto) Neut % (Auto) Lymph % (Auto) [place] % (Auto) Eos % (Auto) Baso % (Auto) Absolute Neuts (auto) Absolute Lymphs (auto) Total Counted Sodium Potassium Chloride Carbon Dioxide Anion Gap BUN Creatinine Estim Creat Clear Calc Est GFR (MDRD) Af Amer Est GFR (MDRD) Non-Af BUN/Creatinine Ratio Glucose Calcium Albumin Fld Polynuclear WBCs # 0.003 Fld Polynuclear WBCs % 42.9 Fluid Mononuclear WBCs 0.004 Fld Mononuclear WBCs % 57.1 CSF Appearance CLEAR CSF Color COLORLESS CSF WBC 0.007 H CSF RBC 0 CSF Cell Count Tube # 4 CSF Total Cell Counted 0.007 H CSF Comment May follow CSF Glucose CSF Total Protein CSF Albumin Serum IgG CSF IgG/Albumin CSF Albumin Index CSF IgG Index CSF IgG Local Synthesis CSF Myelin Basic Protein CSF/Ser Oligoclon Bands CSF Cryptococcus Ag CMV DNA Qual PCR Pending HSV I DNA PCR Pending HSV II DNA PCR Pending Culture Method Miscellaneous Cytology Pending Miscellaneous Test Home Medications: Medications to take at Discharge Cyclobenzaprine [Flexeril] 10 mg PO TID 08/02/18 Naproxen 500 mg PO BID 08/02/18 Primary Care Physician: Care Physician,No Primary [Primary Care Provider] - Medical Necessity - Tobacco Use Smoking Status: Never smoker Tobacco Use: Chew - Patient notes 1 can of to last approximately 1 week. Meaningful Use Info Meaningful Use Diagnoses (Choose all that apply): None applicable Code Visit Inpatient E&M: 23590 Disch Hosp
--- NOTE | 2018-08-03 17:37 | DS.PCM_ITS ---
Discharge Date and Diagnosis - Problem List Patient Problems: Active and Suspected Problems Radiculopathy (Acute) Urinary incontinence (Acute) Weakness (Acute) Transverse myelitis (Acute) Date of Admission: 08/02/18 Date of Discharge: 08/03/18 - Primary Discharge Diagnosis Active and Suspected Problems Radiculopathy (Acute) Urinary incontinence (Acute) Weakness (Acute) Transverse myelitis (Acute) - Secondary Discharge Diagnosis Chronic Problems Chewing tobacco use (Chronic) Hospital Course and Treatment Imaging Results: 08/03/18 10:05 Fluoro Guided Lumbar Puncture [RAD] Urgent Summary of Care Provided: [] The patient is a 33 y/o M with no prior history of neurological problem but habit of chew Tobacco use who presents to the [facility] ED on 08/02/18 with history of onset approximately 6 weeks prior initially left toes and left fingertip paresthesias which over the last several weeks have progressively worsened now inclusive of the left hand in addition to the left anterior thigh as well as knee downward circumferentially in addition to subjective weakness, muscle loss to the left side as well as now onset over the last 24 hours urinary incontinence. (1) Left-sided paresthesias, Radiculopathy w/ Urinary Incontinence, Unclear type: Admitted to PCU, maintain on telemetry, continue serial neurological assessments, fall precautions, PRN pain and antiemetic regimen. MRI C-spine was done and shows coin shaped T2 hyperintense enhancing lesion at C5-C6. Discussed with neurologist Dr. Lainez and no acute cord compression but has mild to moderate central canal stenosis at C5-C6 level and impingement on intervertebral foramen . MRI T-spine and LS-spine was done and reported as mentioned below. Solu-Medrol 1 g IV once daily for 5 days. Rheumatological small vessel disease workup and spinal fluid viral titers are pending. Cell count of his spinal fluid shows 7 cells, 3 polynuclear, 4 mononuclear cells. Glucose and protein within normal limit. Neurologist Dr. Lainez wanted neurosurgical evaluation for cord edema at C5- C6 level along with T2 hyperintense enhancing lesion to rule out neoplastic etiology. [place] [facility] transfer line was called and discussed the clinical findings with Dr. Jean. He accepted the patient and neurosurgeon Dr.Mercarian mark gaspar be consulted. obtain MRI Brain and cervical spine with contrast per discussion with Neurology, pending Neurology consultation/assessment, PT, OT, CM consultation. Post void residuals to assess for possible overflow incontinence which with retention would be more worrisome for cord compression. Neurology advised hold on any steroid addition until MRI resulted. (2) Tobacco Abuse: Encouraged cessation. (3) DVT prophylaxis: SCDs, Lovenox. Patient is in the process of being transferred to [facility]. Patient is hemodynamically stable for transfer. Clinical Impression(s) from Imaging Studies Lumbar Spine X-Ray 08/01/18 21:58 IMPRESSION: Normal x-ray examination of the lumbar spine. Brain MRI 08/02/18 01:00 IMPRESSION: 1. Normal unenhanced and enhanced MRI of the brain. 2. Pronounced pansinusitis. Cervical Spine MRI 08/02/18 01:00 IMPRESSION: 1. Moderate pronounced central canal stenosis at C5-C6 disc level and moderately pronounced stenosis of the bilateral intervertebral neural foramina due to osteophytes arising from the uncovertebral joints and posterior annular bulging disc. 2. Abnormal intramedullary signal abnormality of the cervical spinal cord at the C5-C6 disc level enhancement with intravenous contrast and with surrounding edema. Etiology is unknown at this time. Lumbar Spine MRI 08/03/18 06:00 IMPRESSION: 1. Moderately pronounced central canal stenosis at L4-L5 disc level secondary to developmental short pedicles and small posterior midline disc protrusion. 2. Small left L5-S1 posterior paramedian disc protrusion with suspicious minimal posterior displacement of the left S1 nerve root sleeve and moderate central canal stenosis. 3. Moderate central canal stenosis at L3-L4 disc level. 4. Mild central canal stenosis at L1-L2 and L2-L3 disc space levels. 5. No MRI evidence of lumbar extruded disc fragment. Thoracic Spine MRI 08/03/18 06:00 IMPRESSION: 1. Small T7-T8 posterior midline disc protrusion causing minimal indentation of the ventral cord surface but no spinal cord compression. 2. Minimal T5-T6 disc space height narrowing. 3. Small enhancing T5 benign vertebral body hemangioma. 4. Normal MRI of the thoracic spinal cord. Lumbar Puncture Fluoroscopy 08/03/18 10:05 IMPRESSION: Successful fluoroscopic-guided lumbar puncture. Patient Problems: Active and Suspected Problems Radiculopathy (Acute) Urinary incontinence (Acute) Weakness (Acute) Transverse myelitis (Acute) Subjective: Patient still has paresthesia left hand. 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 No change. Patient had LP yesterday. Patient autoimmune workup and viral titers of lumbar punctures are pending. Imaging test reviewed with the patient. Discussed with the neurologist and wanted neurosurgical evaluation for cervical cord edema. Objective: General: Alert, Oriented x3, Cooperative HEENT: Atraumatic, PERRLA, EOMI, Normocephalic Oral: Moist Mucosa Neck: Supple, No JVD, Negative Carotid Bruits Lungs: Clear to auscultation, Normal air movement, No rhonchi, No wheeze, No rales Cardiovascular: Regular rate, Regular Rhythm, Normal S1, Normal S2, No murmurs Abdomen: Bowel Sounds Present, Soft, Non Tender, Non-Distended Extremities: No edema, Capillary Refill Less than 3 Seconds Skin: No rashes, No breakdown Musculoskeletal: No Tenderness to Palpation of Joints or Extremities Neurological: - - Mild weakness of left lower extremity. 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 Plantar reflex is negative Psych/Mental Status: Normal Affect, Appropriate - Physical Exam Vital Signs Temp Pulse Resp BP Pulse Ox 98.3 F 88 16 135/71 H 96 08/03/18 16:50 08/03/18 16:50 08/03/18 16:50 08/03/18 16:50 08/03/18 16:50 Oxygen Delivery Method Room Air Weight: 157 lb 13.616 oz Body Mass Index (BMI) 22.3 Intake and Output for Last 24 Hours 08/01/18 08/02/18 08/03/18 23:59 23:59 23:59 Intake Total 2561 / 2561 3042 / 3042 Balance 2561 / 2561 3042 / 3042 Microbiology Past 72 Hours 08/03/18 10:34 Gram Stain - Final Csf, Spinal Fluid Laboratory Tests Past 24 Hrs 08/02/18 08/03/18 08/03/18 10:34 05:00 05:00 WBC 6.2 RBC 4.74 Hgb 14.0 Hct 43.3 MCV 91.4 MCH 29.5 MCHC 32.3 RDW 12.6 RDW Differential 41.5 Plt Count 180 MPV 10.9 Immature Gran % (Auto) 0.200 Neut % (Auto) 90.3 H Lymph % (Auto) 9.0 L [place] % (Auto) 0.5 Eos % (Auto) 0.0 Baso % (Auto) 0.0 Absolute Neuts (auto) 5.6 Absolute Lymphs (auto) 0.56 L Total Counted Not Reportable Sodium Potassium Chloride Carbon Dioxide Anion Gap BUN Creatinine Estim Creat Clear Calc Est GFR (MDRD) Af Amer Est GFR (MDRD) Non-Af BUN/Creatinine Ratio Glucose Calcium Albumin Pending Fld Polynuclear WBCs # Fld Polynuclear WBCs % Fluid Mononuclear WBCs Fld Mononuclear WBCs % CSF Appearance CSF Color CSF WBC CSF RBC CSF Cell Count Tube # CSF Total Cell Counted CSF Comment CSF Glucose CSF Total Protein CSF Albumin Pending Serum IgG Pending CSF IgG/Albumin Pending CSF Albumin Index Pending CSF IgG Index Pending CSF IgG Local Synthesis Pending CSF Myelin Basic Protein Pending CSF/Ser Oligoclon Bands Pending CSF Cryptococcus Ag CMV DNA Qual PCR HSV I DNA PCR HSV II DNA PCR Culture Method Pending Miscellaneous Cytology Miscellaneous Test Pending 08/03/18 08/03/18 08/03/18 05:00 10:34 10:34 WBC RBC Hgb Hct MCV MCH MCHC RDW RDW Differential Plt Count MPV Immature Gran % (Auto) Neut % (Auto) Lymph % (Auto) [place] % (Auto) Eos % (Auto) Baso % (Auto) Absolute Neuts (auto) Absolute Lymphs (auto) Total Counted Sodium 142 Potassium 4.4 Chloride 108 H Carbon Dioxide 26.0 Anion Gap 8 BUN 17 Creatinine 1.00 Estim Creat Clear Calc 106.41 Est GFR (MDRD) Af Amer 110 Est GFR (MDRD) Non-Af 91 BUN/Creatinine Ratio 17.0 Glucose 176 H Calcium 8.6 Albumin Fld Polynuclear WBCs # Fld Polynuclear WBCs % Fluid Mononuclear WBCs Fld Mononuclear WBCs % CSF Appearance CSF Color CSF WBC CSF RBC CSF Cell Count Tube # CSF Total Cell Counted CSF Comment CSF Glucose 86 H CSF Total Protein 45.0 CSF Albumin Serum IgG CSF IgG/Albumin CSF Albumin Index CSF IgG Index CSF IgG Local Synthesis CSF Myelin Basic Protein Pending CSF/Ser Oligoclon Bands CSF Cryptococcus Ag Pending CMV DNA Qual PCR HSV I DNA PCR HSV II DNA PCR Culture Method Miscellaneous Cytology Miscellaneous Test 08/03/18 08/03/18 08/03/18 10:34 10:34 10:34 WBC RBC Hgb Hct MCV MCH MCHC RDW RDW Differential Plt Count MPV Immature Gran % (Auto) Neut % (Auto) Lymph % (Auto) [place] % (Auto) Eos % (Auto) Baso % (Auto) Absolute Neuts (auto) Absolute Lymphs (auto) Total Counted Sodium Potassium Chloride Carbon Dioxide Anion Gap BUN Creatinine Estim Creat Clear Calc Est GFR (MDRD) Af Amer Est GFR (MDRD) Non-Af BUN/Creatinine Ratio Glucose Calcium Albumin Fld Polynuclear WBCs # 0.003 Fld Polynuclear WBCs % 42.9 Fluid Mononuclear WBCs 0.004 Fld Mononuclear WBCs % 57.1 CSF Appearance CLEAR CSF Color COLORLESS CSF WBC 0.007 H CSF RBC 0 CSF Cell Count Tube # 4 CSF Total Cell Counted 0.007 H CSF Comment May follow CSF Glucose CSF Total Protein CSF Albumin Serum IgG CSF IgG/Albumin CSF Albumin Index CSF IgG Index CSF IgG Local Synthesis CSF Myelin Basic Protein CSF/Ser Oligoclon Bands CSF Cryptococcus Ag CMV DNA Qual PCR Pending HSV I DNA PCR Pending HSV II DNA PCR Pending Culture Method Miscellaneous Cytology Pending Miscellaneous Test Home Medications: Medications to take at Discharge Cyclobenzaprine [Flexeril] 10 mg PO TID 08/02/18 Naproxen 500 mg PO BID 08/02/18 Primary Care Physician: Care Physician,No Primary [Primary Care Provider] - Medical Necessity - Tobacco Use Smoking Status: Never smoker Tobacco Use: Chew - Patient notes 1 can of to last approximately 1 week. Meaningful Use Info Meaningful Use Diagnoses (Choose all that apply): None applicable Code Visit Inpatient E&M: 47000 Disch Hosp
[2018-08-04 10:28] LABS: Pathologist Review Reviewed
[2018-08-05 18:38] LABS: Cryptococcus Antigen CSF Negative (Negative)
[2018-08-07 03:06] LABS: HSV 1 By PCR Negative (Negative)
[2018-08-07 11:06] LABS: CMV by PCR Negative (Negative); HSV 2 By PCR Negative (Negative)
[2018-08-08 12:08] LABS: CSF Albumin 30 mg/dL (11-48); CSF IgG 2.7 mg/dL (0.0-8.6); CSF IgG Index 0.5 (0.0-0.7); IgG Serum 751 mg/dL (700-1600); IgG Synthesis Rate, CSF -2.4 mg/day (-9.9 TO +3.3); IgG/Alb Ratio, CSF 0.09 (0.00-0.25); Serum Albumin 3.8 g/dL (3.5-5.5)
[2018-08-08 16:36] LABS: CSF:Serum Albumin Index 8 (0-8); Myelin Basic Protein, MBP 4.2 ng/mL (0.0-1.2)
== END 2018-08-03 12:39 | disposition short-term general hospital (02) ==
LOC: ED 21:40 → PCU 08-02 00:42
PROVIDERS: Psychiatry & Neurology Neurology; Admitting Provider Family Medicine; Emergency Provider Emergency Medicine; Visit Provider Internal Medicine
DX: M54.10 Radiculopathy, site unspecified (principal); G37.3 Acute transverse myelitis in demyelinating disease of central nervous system; R32 Unspecified urinary incontinence; F17.220 Nicotine dependence, chewing tobacco, uncomplicated; G89.29 Other chronic pain; Z79.899 Other long term (current) drug therapy
CPT/HCPCS: 36415; 62270; 70553; 72100; 72156; 72157; 72158; 77003; 80048; 82040; 82042; 82164; 82607; 82784; 82945; 83735; 83873; 83916; 84157; 84443; 85025; 85652; 86038; 86140; 86225; 86226; 86235; 86256; 86431; 86618; 86788; 86789; 87070; 87205; 87496; 87529; 87899; 88108; 88313; 89050; 89051; 96361; 96365; 96366; 96375; 96376; 97802; 99218; 99282; A9585; J7030; A4216; G0378; J2405; J2930

== ENCOUNTER → 2018-09-06 09:41 | Outpatient (CLI) | payer BC, SELFPAY ==
[2018-08-02 01:07] VITALS: BMI 22.3
[2018-09-06 11:02] LABS: Amphetamine Urine VISTA NEGATIVE (<1000 ng/mL); Barbiturate Urine VISTA NEGATIVE (< 200 ng/mL); Benzodiazepine Urine VISTA NEGATIVE (< 200 ng/mL); Cocaine Urine VISTA NEGATIVE (< 300 ng/mL); Ecstacy Urine VISTA NEGATIVE (< 500 ng/mL); Methadone Urine VISTA NEGATIVE (< 300 ng/mL); PCP Urine VISTA NEGATIVE (< 25 ng/mL); THC Urine VISTA NEGATIVE (< 50 ng/mL); Vista UDS pH Range 6
== END ==
PROVIDERS: Referring Provider Anesthesiology Pain Medicine; Visit Provider Anesthesiology Pain Medicine
DX: F11.20 Opioid dependence, uncomplicated (principal)
CPT/HCPCS: 80307

== ENCOUNTER 2019-02-27 07:34 | Outpatient (RCR) | payer BC, SELFPAY ==
[2018-08-02 01:07] VITALS: BMI 22.3
--- NOTE | 2019-03-02 10:00 | HP.OTFCE_ITS ---
HP OT Functional Capacity Eval Date of Evaluation: 02/27/19 - Task Lift Floor (Occasional 1-33% of Day): 65 Floor (Frequent 34-66% of Day): 30 Floor (Constant 67-100% of Day): 12 Floor PDL: Medium Knee (Occasional 1-33% of Day): 50 Knee (Frequent 34-66% of Day): 25 Knee (Constant 67-100% of Day): 10 Knee PDL: Medium Waist (Occasional 1-33% of Day): 60 Waist (Frequent 34-66% of Day): 30 Waist (Constant 67-100% of Day): 12 Waist PDL: Medium Shoulder (Occasional 1-33% of Day): 40 Shoulder (Frequent 34-66% of Day): 20 Shoulder (Constant 67-100% of Day): 8 Shoulder PDL: Light-Medium Overhead (Occasional 1-33% of Day): 40 Overhead (Frequent 34-66% of Day): 20 Overhead (Constant 67-100% of Day): 8 Overhead PDL: Light-Medium Comments: Based on generalized weakness and decreased body mechanics it would be recommended Tani completed ergonomic training and strengthening prior starting back to full duty work. - Work Activity/Posture Bending: Frequent Ability (34-66% of day) Squatting: Frequent Ability (34-66% of day) Comments: weakness noted Kneeling: Occasional Ability (1-33% of day) Reaching out: Frequent Ability (34-66% of day) Reaching up: Frequent Ability (34-66% of day) Sitting: Frequent Ability (34-66% of day) Walking: Frequent Ability (34-66% of day) Standing: Frequent Ability (34-66% of day) - Reference Duration Sedentary Sedentary Light Light Light Medium Medium Medium Heavy Very Heavy Heavy Occasional (0-33% of day) Frequent (34-66% of day) Constant (67-100% of day) 10 # Negligible Negligible 15 # 8 # Negligible 20 # 10# Negli. 35 # 18 # 7 # 50 # 25 # 10 # 75 # 100 # >100 # 38 # 50 # >50 # 15 # 20 # >20 # - Patient Information Height: 1.78 m Weight:: 72.756 kg Hand Dominance: R BP (Medication Use/Usual Values per pt report): No - Medical History Medical History Including Restrictions: No restrictions provided by doctor or patient. - Diagnoses Diagnoses: Current: Tani was referred for functional capacity evaluation due to low back pain and he is 6 months status post cervical spine fusion (plate and six screws) of C4-C6. Past Medical History: low back pain, cervical spine fusion. Tani had lumbar spine x-ray on 08/01/18 in which finding indicated nothing significant. On 08/03/18 he completed MRI in which results indicated mild wedging of superior enplates of T12, L 1, and L2. Additionally, moderately central canal stenosis of L4-L5, small left L5-S1 posterior paramedian disc protusion, moderate central canal stenosis L3-L4, mild central stenosis of L1-L2 and L2-L3 with disc space levels. Medications: Tramadol 2x daily ( took prior to assessment), gabapentin 300 mg as needed, zanadine as needed - Symptoms Symptoms: Tani's main symptom is pain. He noted prior to cervical spine fusion he has sharp shooting pain which has dissipated. He continues to experience some pain in low back around lumbar spine. He has not completed physical therapy services for related pain but has been seeing pain management doctor. He has been referred to physical therapy three times per patient report but has not scheduled appointment. - Pain Pain: Tani noted his main symptom is pain. He noted sharp shooting pain he down. He noted since cervical spine surgery he has not had legs ?give out? on him but that had been issue previously. He noted that he is on pain management program with Dr. Cherry. He has received two spinal injections to low back around L1 of lumbar spine. He does take pain medications but often tried to refrain from prescription and manage with over the counter pain relief like Aleve and Tylenol. Melissa Pain Questionnaire is a self-report pain assessment to determine a patient?s accurate psychodynamics for accurate pain rating. A score of 30 or high indicates poor psychodynamics and the greater probability of decreased accuracy with accurate pain reporting. Pre- Melissa: 7. Post Melissa: 9. Good psychmetrics on pain perception and reliability of rating. Fear Avoidance Questionnaire (FAQ) is a client self-report assessment for 18-64+ that has shown to be reliable and valid for determining increased fear with movements. A score of 96 or higher indicates increased fear avoidance behaviors. FAQ Pre-testing: -Fear avoidance belief about work (items 6,7,9,10,11,12,15): 18. -Fear avoidance belief about physical activity (items 2,3,4,5):17. FAQ Post testing: -Fear avoidance belief about work (items 6,7,9,10,11,12,15): 13. -Fear avoidance belief about physical activity (items 2,3,4,5):17. Oswestry Neck and Low back questionnaire is a self-report assessment in which patients report their perceived level of disability based on their perceived pain. 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 He noted most of job is electrical and diagnostic support and repairs. Tani works 8 hour shifts with frequent bending, squatting, kneeling, and lifting. He noted that he occasionally will need to lift 50 lbs but frequently lifts about 20 lbs. He has hope to go back to with employer within upcoming months as he has been of work for last six months since surgery in July of 2018. - Behavioral Behavioral: Needed to be redirected to tasks as noted he was 'a little nervous' about completing assessment due to 'really wanting to go back to work'. He noted he has not completed physical therapy but 'has three scripts at home to complete. - ADLS ADLS: Tani lives in one story home with . He has four steps to enter with handrail to right side when entering through front entrance. Her noted that they do have accessible basement with 10-12 stairs to enter. Tani completed basement access daily. Tani notes he is independent in all self-care tasks like bathing, dressing, and grooming. He additionally completes higher self-care tasks of driving, lawn care, grocery shopping, and cooking. His son primarily cares for pets around home which include dog and steer. He has hopes to return to work on light duty but has not been released to return to full duty work at this time. - Physical Examination Physical Examination: The purpose of this functional capacity evaluation (FCE) was to determine Tani?s physical ability. 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 Aerobic limiting factor: 85% of max adjust HR= (220-age) *.85= 186 bpm. Calculated max weight: 60% of weight: 96 lbs. Starting Diagnostics: - blood pressure: 144/100 mmHg. - oxygen at room air with use of finger oximeter: 98 %. - heart rate: 66 bpm. - perceived pain: 2/10. Tani noted that he took preworkout prior to coming into assessment. Noted blood pressure a little high from baseline but likely due to caffeinated preworkout drink. ROM: Cerivcal Spine with goniometer: -Flexion: 0-47. -Extension: 0-55. - Lateral Flexion: R 0-30 , L 0-26. -Rotation: R 0-63 , L 0-67. Lumbar Spine with goniometer: -Flexion: 0-27. -Extension: 0-38. -Lateral Flexion: R 0-29 , L 0-26 Strength: Strength measurements completed with use of manual muscle testing and short arm access of dynamometer. Results are as follows: Upper Body: Shoulder flexion: -Dynamometer: R 18.4 , L 15.7 lbs. Shoulder extension: - Dynamometer: R 13.7 , L 16.7. Shoulder abduction: -Dynamometer: R 18 , L 15.2 lbs. Shoulder Internal Rotation: -Dynamometer: R 24 , L 25.2 lbs. Shoulder External Rotation: -Dynamometer: R 23 , L 23.7 lbs. Elbow flexion: -Dynamometer: R 16.6 , L 14.7. Elbow extension: -Dynamometer: R 16.9 , L 18.9. Lower Body: Hip flexion: -Dynamometer: R 23.8 , L 17.7 lbs. Hip adduction: -Dynamometer: R 15.4 , L 15.4. Hip abduction: -Dynamometer: R 16.4 , L 17.1. Knee Flexion: -Dynamometer: R 33.9 , L 39.4 lbs. Knee extension: -Dynamometer: R 25.9 , L 27.6 lbs. Plantarflexion: -Dynamometer: R 18 , L 16.5 lbs. Dorsiflexion: -Dynamometer: R 22.7 , L 18.1 Right Information Clerk Cashier Strength Average: 87.33 Right Information Clerk Cashier Strength Percentile: 142 Left Information Clerk Cashier Strength Average: 87.00 Left Information Clerk Cashier Strength Percentile: 130 Right Lateral Pinch Average: 20.00 Right Lateral Pinch Percentile: 50th Left Lateral Pinch Average: 19.33 Left Lateral Pinch Percentile: above 25th but below 50th Right Tripod Pinch Average: 22.33 Right Tripod Pinch Percentile: above 50th but below 75th Left Tripod Pinch Average: 20.00 Left Tripod Pinch Percentile: above 50th but below 75th Comments: Five Span Information Clerk Cashier testing on Dynamometer: Position 1: R 76 , L 60. Position 2: R 99 , L 90. Position 3: R 106 , L 85. Position 4: R 97 , L 79. Position 5: R 86 , L 70. A coefficient of variation greater than 15 % indicated decreased consistency of effort. Coefficient of variation: Right: .127, Left: .156. Consistency of Effort: Right 13%, L 16%. Left not bvelieved to be inconsisent as residual cervical symptoms present on left upper extremity status post cervical fusion. Sensation: Sensory Testing: Sensation testing completed on bilateral feet with monofilament touch test. A score of normal on touch test is 2.83 and within normal range with just some discrepancies for light touch is between 3.22-3.61. The higher the number in more complications related to patient?s ability to perceive touch related sensory stimuli. R hand: Thumb 3.22 ,2nd 3.22 , 3rd 3.22 , 4th 3.61 , 5th 3.61. L hand: Thumb 3.22 ,2nd 3.22, 3rd 4.17 , 4th 3.84 , 5th 4.17 Fine Motor: Completed the Purdue Pegboard test to further determine the patient?s ability to complete 20-3 step tasks, assess fine motor control and general dexterity needed to complete assembly like work. The results are as follows: Right Hand: 13. -Percentile: 13th. Left Hand: 11. -Percentile: 5th. Both Hands: 11. -Percentile: 25th. R+ L+ Both: 35. -percentile: 8th. Assembly: 4. -percentile:below 1st. Table set at 37 inches from floor height. Balance: Completed single leg intelligence chief parallel bars with shoes on: Eyes open: - right: 47 s. - left: 13 s. Would not recommend completing off the ground balance tasks until further rehabilitation completed and very minimal balance of left lower extremity noted with weakness and need for external support with vision. Functional reach test is used to determine static balance in patients. A score of 15 is normal and less than 10 increases risk of falling. A score of 6 or less significantly increases a patient?s risk of falling. [place] 1: 16.5. [place] 2: 15.5. [place] 3: 15.5. Average: 15.8. Tani exhibits normal static balance ability. Functional Gait Assessment (FGA) is a dynamic balance test to determine vestibular functioning and general dynamic balance ability of patient 18-65+. This assessment can be used with clients of various backgrounds to determine functional dynamic balance needed to complete every day work related tasks. 1.Gait Level Surface: 2. 2.Change in Gait Speed: 3. 3.Gait with horizontal head turns: 1. 4.Gait with vertical head turns: 2. 5.Gait and pivot turn: 3. 6.Step over obstacle: 2. 7.Gait with narrow base of support: 3. 8.Gait with eyes closed: 2. 9.Ambulating Backwards: 2. 10.Steps: 3. Total Score: 23 /maximum score 30. Completed dynamic balance assessment two standard deviations below normal range. Increased proprioceptive deficits noted to left lower extremity with tasks. - Non Material Handling Activities Bending: Heart rate prior to beginning with use of pulse oximeter: 85 bpm. 3x, 10x in 34 seconds, and 10x faster in 28 seconds. Completed good body mechanics with completion of full bend. Some decreased spinal alignment observed, and some increased pain behaviors observed with holding breath and burrowed eye brows but noted pain consistent at 2/10. Heart rate posttest with use of pulse oximeter: 91 bpm. Perceived pain: 2/10 Squatting: Heart rate prior to beginning with use of pulse oximeter: 85 bpm. 3x, 10x in 34 seconds, and 10x faster in 32 seconds. Completed fair body mechanics and 75% completion of full squat and equal weightbearing into bilateral lower extremities. Increased knee flexion over toes placing increased strain on bilateral knee joints and decreased alignment of lower extremity with task. Increased crepitus noted in bilateral knees with task. Noted increased difficulty and weakness of bilateral lower extremity and some visible shaking of muscles noted. Increased in heart rate observed to indicate increased exertion but no pain behaviors observed. Heart rate seems to be indicative of exertion. Heart rate posttest with use of pulse oximeter: 123 bpms. Perceived pain:2/10 Kneeling: Heart rate prior to beginning with use of pulse oximeter: 83 bpm. 3x, 10x in 42 seconds, and 10x faster in 29 seconds. Right lower extremity in front for task. Mechanical changes observed as task progressed. Fair body mechanics but good spinal alignment. Compensation and mechanical changes noted with task of left lateral lean. Would not recommend to complete frequently at this time based on clinical observation. Some mild pain behaviors observed of holding of breath but appeared to be more difficult and require more exertion than pain related. Heart rate posttest with use of pulse oximeter: 144 bpm returned to 94 bpm at 1-minute standing break. Perceived pain:2/10 Reaching out/up: Reaching out from standing: Heart rate prior to beginning with use of pulse oximeter: 91 bpm. 3x, 10x in11 seconds, and 10x faster in 9 seconds. Completed fair body mechanics. Decreased alignment of cervical spine with tasks. Heart rate posttest with use of pulse oximeter: 81 bpm. Reaching up from standing: Heart rate prior to beginning with use of pulse oximeter: 80 bpm. 3x, 10x in 9 seconds, and 10x faster in 8 seconds. Completed with fair body mechanics. Increased holding of breath observed. Decreased spinal alignment with task. Heart rate posttest with use of pulse oximeter: 80 bpm. Perceived pain: 2/10 Walking: Heart rate prior to beginning with use of pulse oximeter: 84 bpm. Completed mild antalgic gait during ambulation around facility. Completed gait and walking assessment on [employer] Treadmill with emergency stop attached to shirt for safety precaution. Completed at 3.0- 3.7 mph for 15 minutes with need to alternate with 0-2 hands on handle bars. Completed walking .70 mile in 15 minutes. Continued walking around facility. Observed to be able to complete frequent walking tasks. Heart rate posttest with use of pulse oximeter: 117 bpm. Perceived pain: 2/10 Standing: Completed standing with minimal need to weight shift throughout session for 30 minutes with static and dynamic tasks. Sitting: Completed ability to complete sitting tasks for 30 minutes at start of assessment. With minimal weight shifts to promote comfort. Climbing Stairs: Heart rate prior to beginning with use of pulse oximeter: 87 bpm. Completed one flight of 10 stairs with reciprocal pattern of lower extremities and no handrails. Heart rate posttest with use of pulse oximeter: 85 bpm. Perceived pain: 2/10 - Dynamic Occasional Lifting Capacity Floor Lift: Heart rate prior to beginning with use of pulse oximeter: 108. Max weight: 70 lbs. Occasional Liftinx 65 lbs. Frequent liftinx 30 lbs. With increased weight increased muscle fatigue noted with visible shaking. Fair body mechanics. Some decreased spinal alignment with max weight but minimal mechanical compensations observed. Due to weakness and decreased ergonomics it would be recommended that he completed training prior to start full duty work to reduce risk of reinjury. Heart rate posttest with use of pulse oximeter: 106 bpm. Perceived pain: 2/10 Knee Lift: Heart rate prior to beginning with use of pulse oximeter: 106. Max weight: 90 lbs. Occasional Liftinx 50 lbs. Frequent liftinx 25 lbs. Completed fair body mechanics but increased cervical extension with task and decreased spinal alignment noted through thoracic spine. Completed with weight at 60 lbs increased compensation of segmented lift observed. When weight reduced to 50 lbs decreased compensation and mechanical changes observed. Heart rate posttest with use of pulse oximeter: 106. Perceived pain:2/10 Waist Lift: Heart rate prior to beginning with use of pulse oximeter: 106 bpm. Max weight: 80 lbs. Occasional Liftinx 60 lbs. Frequent liftinx 30 lbs. Completed with fair body mechanics. Increased rotation of cervical spine to left shoulder. Increased weakness of muscle noted and increased compensations with continues repetitions observed. Further strengthening recommended prior to returning to full duty work. . Heart rate posttest with use of pulse oximeter: 101 bpm. Perceived pain: 2/10 Shoulder Lift: Heart rate prior to beginning with use of pulse oximeter: 96 bpm. Max weight: 50 lbs. Occasional Liftinx 40 lbs. Frequent liftinx 25 lbs. Frequently looking to left shoulder for task. Completed with fair body mechanics. Decreased cervical spine alignment observed. Increase in heart rate and pain behaviors of holding breath. Completed but increased weakness and mild mechanical changes is observed throughout bilateral upper extremity. Short standing break prior to continuing. Heart rate posttest with use of pulse oximeter: 116. Perceived pain: 2/10 Overhead Lift: Heart rate prior to beginning with use of pulse oximeter: 91 bpm. Max weight: 60. Occasional Liftinx 40 lbs. Frequent liftinx 20 lbs. Mechanical changes; looking to direction of intended movement. Standing break prior to continuing. Mild mechanical changes observed with task. Increased sweating with exertion. Heart rate posttest with use of pulse oximeter: 113 bpm. Perceived pain:2/10 Carrying: Heart rate prior to beginning with use of pulse oximeter: 96 bpm. Occasional Liftinx 35 lbs. Frequent liftinx 15 lbs. Fair body mechanics but increased mechanical compensations of left lateral leaning to complete 20 feet bilateral carry task. Holding breath observed. Increased heart rate observed. Heart rate posttest with use of pulse oximeter: 122. Perceived pain: 2-3/10 Comments: Ending Diagnostics: - blood pressure: 142/92 mmHg. - heart rate: 84 bpm. 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 He exhibits increased weakness to left lower extremity and after clinical observation he exhibits poor lifting habits that could results in reinjury. When returning to work it would be recommended, he complete light duty prior to being released to complete more intensive labor to reduce risk of completing increased mechanical compensations due to muscle fatigue and weakness which could results in further injury.
--- NOTE | 2019-03-02 10:01 | HP.OTFCE.D ---
FCE D/C Summary - Discharge ALVARO HELM Jr. was seen for a one time visit for an FCE on 02/27/19 and is discharged.
== END 2019-02-27 19:00 | disposition home or self-care (01) ==
LOC: OT 07:34
PROVIDERS: Referring Provider Anesthesiology Pain Medicine; Visit Provider Anesthesiology Pain Medicine
DX: M54.9 Dorsalgia, unspecified (principal)
CPT/HCPCS: 97750

== ENCOUNTER 2019-11-20 11:00 | Outpatient (RCR) | payer BC, SELFPAY ==
[2019-08-21 07:00] VITALS: BMI 22.2
--- NOTE | 2019-09-24 14:33 | HP.PTEVAL ---
Patient's Visit Information ALVARO HELM Jr. is a 34 year old M referred to Physical Therapy by WOODY VAUGHN with a diagnosis of INTERVERTEBRAL DISC DISORDER WITH RADICULOPATHY OF LUMBAR. Date of Evaluation: 09/24/19 Physical Therapist: Spike Ontiveros PT, Cert MDT, OCS - Visit Plan Frequency: 2x /Week Duration: 4 Weeks Plan: S/P LUMBAR DISECTOMY /LAMINECTOMY Jul 30 2019 AND CERVICAL FUSION Jul. PT INTERVENTIONS POSTURAL EX'S,LE FLEXABLITY, BLE STRENGTHENING DLS ABD/BACK AND ENDURANCE PROGAM - Subjective Subjective: This 34 y/o male presents to physical therapy with lumbar L4-S1 laminectomy /disectomy done Jul 30 [facility] done by DR Jurado .Intially 10 # restriction 6weeks. Patient d/c 2 days post surgery due to pain. Prior surgery LBP and radicular symptoms left leg. Pateint is doing better with pain left leg but conts in left leg to feet toes. Activity increases symptoms sitting,standing ,bending,lifting . Alleviating factors rest pain MEDS. Patient had cervical fusion last Jul 2018. Coughing/sneezing -. Bowel/bladder-. Patient has parathesia/tingling in leg.Pain affects sleeping.Patient condition affects ability to perform ADLS' and housework tasks.Patient seen DR benjamin PT no restriction. Patient condition affects QOL and RTW. SOCIAL: MARIED. VOCATION: [employer] - Pain Left Back Pain Intensity (Out of 10): 3 Pain Intensity Range: 10 Left Lower Extremity Pain Intensity (Out of 10): 2 Pain Intensity Range: 10 - Objective POSTURE: rounded shoulders head foward. GAIT: reciprocal pattern. NEURO: C/O parathesia/tingling right leg ,reflexes L3-4,L4-5 2/3. SYMMTRIES: ALIGN. MUSCULAR ENDURANCE ABDOMINAL: unable. LUMBAR ROM: flexion mod loss,extension mod loss,side gldes mod loss. FLEXABLITY: hams mod tight. MMT: quads/hams /hip 4-/5 left ,right 4/5,ankle 4/5 - Special Tests L/S Slump test left side: Negative L/S Slump test right side: Negative L/S Left Straight Leg Raise: Negative L/S Right Straight Leg Raise: Negative Lumbar Standing: Flexion - Mechanical Response: No effect Lumbar Standing: Flexion - Symptoms During Testing: Increases Lumbar Standing: Flexion - Symptoms After Testing: No worse Comments:: tightnenss Lumbar Standing: Extension - Mechanical Response: No effect Lumbar Standing: Extension - Symptoms During Testing: Increases Lumbar Standing: Extension - Symptoms After Testing: No worse Comments:: tightness Lumbar Standing: Right Side Glides - Mechanical Response: No effect Lumbar Standing: Right Side [place] - Symptoms During Testing: No effect Lumbar Standing: Right Side [place] - Symptoms After Testing: No effect Lumbar Standing: Left Side [place] - Mechanical Response: No effect Lumbar Standing: Left Side [place] - Symptoms During Testing: No effect Lumbar Standing: Left Side [place] - Symptoms After Testing: No effect - Goals Goal 1:: Independant with HEP. Goal Time Frame: 4-6 Weeks Goal 2:: Improve posture/body mechanics Goal Time Frame: 4-6 Weeks Goal 3:: Patient to decrease pain back and leg by 70% or > to improve function Goal Time Frame: 4-6 Weeks Goal 4:: Patient to improve lumbar ROM for function of recovery Goal Time Frame: 4-6 Weeks Goal 5:: Patient to improve back owestry by 5-8 points or > to improve function. Goal Time Frame: 4-6 Weeks Goal 6:: Patient increase strength left quads/hams 4/5 ,hip flexion 4-/5. Goal Time Frame: 4-6 Weeks - Rehabilitation Potential Physical Therapy Diagnosis: This 34 y/o male presents to PT with lumbar surgery disectomy/laminctomy with weakness ,decrease core ,poor lumbar ROM impairs ADL's and RTW thus benifit from skilled PT Rehabilitation Potential: Good - Anticipated Interventions Patient/Client Instruction: Educate patient on: Condition, Plan of Care For the Purpose of:: To decrease pain, To increase ROM, To improve muscle performance and motor function, To improve ability to perform ADL's, To increase tolerance to activity/condition/position, To improve ability of physical actions for home/community/work/leisure, To improve health of tissue, To decrease soft tissue restriction, To increase flexibility/ROM, To assume or resume ADL's, To improve health and function, To improve ability to perform tasks related to life management Therapeutic Exercise to Include: Strength training, Endurance training, Body mechanics, Postural training, Flexibilty training, Dynamic Lumbar Stabilization Comment: BLE For the Purpose of:: To decrease pain, To increase ROM, To improve muscle performance and motor function, To improve ability to perform ADL's, To increase tolerance to activity/condition/position, To improve ability of physical actions for home/community/work/leisure, To improve health of tissue, To decrease soft tissue restriction, To increase flexibility/ROM, To improve endurance, To improve self management, To improve ability to perform tasks related to life management TENS: Yes IF ES: Yes Cryotherapy (ice pack, ice massage): Yes Thermo therapy (hot pack): Yes For the Purpose of:: To decrease pain, To improve nutrient delivery to tissue, To increase oxygenation perfusion, To improve health of tissue, To decrease soft tissue restriction Thank you for the opportunity to evaluate your patient. For Medicare and Medicare HMO plans, please review the plan of care and approve it. It will need to be FAXED BACK to us at [phone] for Medicare purposes. For Medicare only, by signing this I certify the plan of care. Please let me know if there are questions or concerns regarding this plan of care. Physician Signature: Date:
--- NOTE | 2020-04-09 09:08 | HP.PT.NRP ---
ALVARO OSULLIVANHIPOLITO Martines was seen in my office for initial evaluation on 09/24/19. The following Plan of Care was established for this patient: Initial Frequency: 2x /Week Initial Duration: 4 Weeks Patient/Client Instruction: Educate patient on: Condition, Plan of Care For the Purpose of:: To decrease pain, To increase ROM, To improve muscle performance and motor function, To improve ability to perform ADL's, To increase tolerance to activity/condition/position, To improve ability of physical actions for home/community/work/leisure, To improve health of tissue, To decrease soft tissue restriction, To increase flexibility/ROM, To assume or resume ADL's, To improve health and function, To improve ability to perform tasks related to life management Therapeutic Exercise to Include: Strength training, Endurance training, Body mechanics, Postural training, Flexibilty training, Dynamic Lumbar Stabilization For the Purpose of:: To decrease pain, To increase ROM, To improve muscle performance and motor function, To improve ability to perform ADL's, To increase tolerance to activity/condition/position, To improve ability of physical actions for home/community/work/leisure, To improve health of tissue, To decrease soft tissue restriction, To increase flexibility/ROM, To improve endurance, To improve self management, To improve ability to perform tasks related to life management TENS: Yes IF ES: Yes Cryotherapy (ice pack, ice massage): Yes Thermo therapy (hot pack): Yes For the Purpose of:: To decrease pain, To improve nutrient delivery to tissue, To increase oxygenation perfusion, To improve health of tissue, To decrease soft tissue restriction This patient was last seen in our office 09/24/19. Pertinent comments regarding their Physical therapy will appear below: Patient seen for PT for back pain . Patient has prgressed well with DLS and postural ex's. But stopped PT during COVID panedmic At this point I will be discontinuing this patient from physical therapy. I would be happy to see this patient again in the future if found appropriate by the physician. Thank you! Spike Ontiveros, PT, Cert MDT, OCS
== END 2019-11-20 19:00 | disposition home or self-care (01) ==
LOC: PT 11:00
DX: M51.16 Intervertebral disc disorders with radiculopathy, lumbar region (principal)
CPT/HCPCS: 97110; 97161